=== PATIENT | female | born 1960 | race Caucasian/White ===

== ENCOUNTER 2021-03-20 20:42 | Inpatient (IN) | payer OTHER ==
[~2021-03-20] VITALS: Ht 165.1 cm; Wt 97.5 kg
--- NOTE | 2021-03-20 21:00 | NUR ---
PATIENT WAS BIBRA 102 FROM [facility] FOR AGITATION/AMS WHICH ACCORDING TO PARAMEDICS IS NOT HER USUAL BEHAVIOR PER FACILITY. PT AAO X 2-3, WAS YELLING ON PRESENTATION AND UNABLE TO PROVIDE RELEVANT HISTORY. PT'S BREATHING EVEN AND UNLABORED. SATURATION AT 96% ON ROOM AIR. PT WAS SEEN AND EXAMINED BY DR BELL. PT ATTACHED TO MONITOR AND PULSE OX. WILL CONTINUE TO MONITOR PT AND CARRY OUT MD ORDER.
--- NOTE | 2021-03-20 21:53 | NUR ---
PER SENIOR MARKETING ASSOCIATE, THEY CANNOT TAKE PATIENT PATIENT KEEPS SCREAMING AND IS BEING COMBATIVE AND WILL NOT HOLD STILL FOR THE PROCEDURE. DR COVARRUBIAS WAS NOTIFIED, HE ACKNOWLEDGED, NNO RECEIVED.
[2021-03-20 22:10] LABS: CALCIUM, SERUM 8.7 mg/dL (8.5-10.1); CREATININE 2.7 mg/dL (0.6-1.3); POTASSIUM 3.5 mmol/L (3.5-5.1)
[2021-03-20 22:16] LABS: ALBUMIN 2.8 g/dL (3.4-5.0); BILIRUBIN,DIRECT 0.1 mg/dL (0.0-0.2); BILIRUBIN,TOTAL 0.3 mg/dL (0.2-1.0); TOTAL PROTEIN, SERUM 6.4 g/dL (6.4-8.2)
[2021-03-20 22:21] LABS: BASOPHILS % (AUTO) 0.3 % (0.0-2.0); EOSINOPHILS % (AUTO) 1.3 % (0.0-6.0); HEMATOCRIT 26 % (33-45); HEMOGLOBIN 8.5 g/dL (11.5-14.8); LYMPHOCYTES # (AUTO) 1.1 K/uL (0.8-4.8); LYMPHOCYTES % (AUTO) 14.6 % (20.0-44.0); MEAN CORPUSCULAR HGB CONC 33 g/dl (31.0-36.0); MEAN CORPUSCULAR VOLUME 100 fL (82-100); MONOCYTES # (AUTO) 0.6 K/uL (0.1-1.30); MONOCYTES % (AUTO) 8.1 % (2.0-12.0); NEUTROPHILS # (AUTO) 5.8 K/uL (1.8-8.9); NEUTROPHILS % (AUTO) 75.7 % (43.0-81.0); PLATELET COUNT (AUTO) 287 K/uL (150-450); RED BLOOD CELL COUNT(AUTO) 2.55 MIL/uL (4.0-5.2); WHITE BLOOD COUNT (AUTO) 7.7 K/uL (4.3-11.0)
[2021-03-20] MEDS ORDERED: LORAZEPAM INJ 2 MG/ML VIAL IM STA (22:23)
--- NOTE | 2021-03-20 22:27 | NUR ---
PATIENT'S BROTHER(MAIN SCHOOL ATTENDANCE SECRETARY) ANAYA CAR [phone]
[2021-03-20] MEDS ORDERED: diphenhydrAMINE HCL 50 MG/ML VIAL IM ONE ×2 (22:30→23:30)
[2021-03-20] MEDS ORDERED: HALOPERIDOL LACTATE INJ 5 MG/ML VIAL IM ONE (22:30)
[2021-03-20 22:37] LABS: BILIRUBIN,URINE NEGATIVE (NEGATIVE); COLOR,URINE YELLOW (YELLOW); LEUKOCYTE ESTERASE ,URINE MODERATE (NEGATIVE); NITRITE, URINE NEGATIVE (NEGATIVE); PROTEIN,URINE 100 mg/dl (NEGATIVE); UGLUCOSE NEGATIVE (NEGATIVE); UROBILINOGEN,URINE 0.2 EU/dL (0.2)
[2021-03-20] MEDS ORDERED: LORAZEPAM INJ 2 MG/ML VIAL ONE (22:40)
[2021-03-20] MEDS ORDERED: diphenhydrAMINE HCL 50 MG/ML VIAL ONE ×2 (22:40→23:12)
[2021-03-20] MEDS ORDERED: HALOPERIDOL LACTATE INJ 5 MG/ML VIAL ONE (22:40)
[2021-03-21] MEDS ORDERED: IV NS 0.9% 1,000 ML IV ONE ×2 (00:30→12:00)
[2021-03-21] MEDS ORDERED: CEFTRIAXONE 1GM BAG (ER ONLY) 1 GM/50 ML PIGGYBACK IV ONE (00:30)
--- NOTE | 2021-03-21 00:41 | NUR ---
DR. BELL TALKING WITH DR. FELIPE DENT.
[2021-03-21] MEDS ORDERED: CEFTRIAXONE 1GM BAG (ER ONLY) 50 ML IV ONE (01:16)
--- NOTE | 2021-03-21 02:36 | NUR ---
[facility] SWAB COLLECTED AND SENT TO LAB. PATIENT'S BELONGINGS LIST DONE.
--- NOTE | 2021-03-21 02:56 | NUR ---
FOLLOWED UP WITH JUAN MANUEL
[2021-03-21] MEDS ORDERED: HEPARIN INFUSION/D5W 0 ML IV ONE (03:33)
--- NOTE | 2021-03-21 05:20 | NUR ---
per admission. pt is authorized to stay.
--- NOTE | 2021-03-21 05:20 | NUR ---
TELEPHONE CALL FROM BROTHER ANAYA, STATED HE IS CONCERNED WITH HER SISTER SHE HAS NOT BEEN ON HER USUAL MENTAL STATUS. HE EXPRESSED HIS WISH FOR PATIENT TO BE SEEN BY A PSYCHIATRIST.
--- NOTE | 2021-03-21 05:22 | NUR ---
CAlled nursing sup for bed
--- NOTE | 2021-03-21 05:22 | NUR ---
Massimo cardona in [facility] - 03/21/21 at 0524 by LAUREN Nursing Sup notified emelia kolb
--- NOTE | 2021-03-21 05:51 | NUR ---
covid swab sent to lab
[2021-03-21 07:04] LABS: BACTERIA,URINE None seen /HPF (None Seen); RBC,URINE 21-50 /HPF (0-2); SQUAMOUS EPITHELIAL CELL,UR Moderate /HPF (None Seen); WBC,URINE TOO NUMEROUS TO COUN /HPF (0-3); YEAST,URINE Many /HPF (None Seen)
[2021-03-21 07:37] LABS: ACETAMINOPHEN 0 ug/ml (10-30); ALCOHOL, BLOOD < 3 mg/dL (0-0)
[2021-03-21 07:54] LABS: CREATINE KINASE, TOTAL 39 U/L (26-192)
[2021-03-21] MEDS ORDERED: PANT40TA2 PO (07:54)
[2021-03-21] MEDS ORDERED: MAGN400O6 PO (07:54)
[2021-03-21] MEDS ORDERED: MULT-447 PO (07:54)
[2021-03-21] MEDS ORDERED: LEVO150T8 PO (07:54)
[2021-03-21] MEDS ORDERED: ASCO-352 PO (07:54)
[2021-03-21] MEDS ORDERED: NIFE-34 PO (07:54)
[2021-03-21] MEDS ORDERED: SITA50TA PO (07:54)
[2021-03-21] MEDS ORDERED: SENN-261 PO (07:54)
[2021-03-21] MEDS ORDERED: ESCI10TA PO (07:54)
[2021-03-21] MEDS ORDERED: ACET-868 PO (07:54)
[2021-03-21] MEDS ORDERED: QUET25TA PO (07:54)
[2021-03-21] MEDS ORDERED: DOCU-141 PO (07:54)
[2021-03-21] MEDS ORDERED: BISA10SU11 RC (07:54)
[2021-03-21] MEDS ORDERED: NA P133E RC (07:54)
[2021-03-21] MEDS ORDERED: CRAN425C6 PO (07:54)
[2021-03-21] MEDS ORDERED: CHOL100062 PO (07:54)
[2021-03-21] MEDS ORDERED: ACET-2605 PO (07:54)
[2021-03-21] MEDS ORDERED: SODI1TAB66 PO (07:54)
--- NOTE | 2021-03-21 09:20 | NUR ---
FRANCISCO IS BROTHER [phone]
--- NOTE | 2021-03-21 09:58 | NUR ---
REPORT GIVEN TO JEFF HEATH FOR MONE
--- NOTE | 2021-03-21 11:00 | NUR ---
RN NOTE PT RECEIVED VIA GURNEY FROM ER PT IS SLEEPING A/O X1/2 NO MEDICAL HISTORY, NO SIGN OR SYMPTOMS OF DISTRESS OR SOB AT THIS TIME, PT IS IN ROOM AIR TOLERATING WELL GRIER CATH IN PLACE BELLOW THE PT, IV ON THE R-HAND PATENT AND FLUSHING WELL, SAFETY MEASURES IN PLACE BED LOCKED AND IN LOWEST POSITION, ALARM ON, CALL LIGHT WITH IN REACH WILL CONTINUE TO MONITOR
[2021-03-21] MEDS ORDERED: Z GUARD REMEDY 2 OZ OINT TP PRN (12:00)
[2021-03-21] MEDS ORDERED: ONDANSETRON HCL/PF 4 MG/2 ML VIAL IVP PRN (12:00)
[2021-03-21] MEDS ORDERED: ACETAMINOPHEN 325 MG TABLET PO PRN (12:00)
[2021-03-21] MEDS: ENOXAPARIN SODIUM 40 MG/0.4 ML DISP.SYRIN SQ SCH (12:54)
[2021-03-21 13:39] VITALS: BP 119/53
[2021-03-21 16:00] VITALS: BP 150/88
--- NOTE | 2021-03-21 18:00 | NUR ---
RN NOTE PT SCREAMING VERY LOUD AND VERY AGITATED DOCTOR NOTIFIES PT PULLED OUT IV
[2021-03-21] MEDS: OLANZAPINE 10 MG VIAL IM PRN (18:23)
--- NOTE | 2021-03-21 18:54 | NUR ---
RN CLOSING NOTE PT IS IN BED VERY COMBATIVE AND AGITATED OLANZAPINE IM GIVEN A/O X1/2 NO, DOCTOR AWARE NO SIGN OR SYMPTOMS OF DISTRESS OR SOB AT THIS TIME, PT IS IN ROOM AIR TOLERATING WELL GRIER CATH IN PLACE BELLOW THE PT 1500 OUTPUT, NO IV AT THIS TIME, SAFETY MEASURES IN PLACE BED LOCKED AND IN LOWEST POSITION, ALARM ON, CALL LIGHT WITH IN REACH WILL ENDORSE TO SHELTER DIRECTORCUSTOMS INVESTIGATOR
[2021-03-21 20:00] VITALS: BP 159/85
--- NOTE | 2021-03-21 20:10 | NUR ---
RN NOTE PATIENT ASLEEP AROUSES TO VERBAL/STIMULI , NO SIGN OR SYMPTOMS OF DISTRESS OR SOB AT THIS TIME, AT ROOM AIR TOLERATING WELL, NO IV IN PLACED, WILL TRY TO INSERT A LINE , ALL SAFETY MEASURES IN PLACE BED LOCKED AND IN LOWEST POSITION, S/R OF BED UPX2, ALARM ON, CALL LIGHT WITH IN REACH, WILL CONTINUE TO MONITOR CLOSELY.
[2021-03-21] MEDS: QUETIAPINE FUMARATE 25 MG TABLET PO SCH (20:58)
[2021-03-21 21:29] LABS: THYROID STIMULATING HORMONE 91.937 uIU/mL (0.358-3.74)
[2021-03-21] MEDS ORDERED: ESCITALOPRAM OXALATE (10 MG) 10 MG TABLET PO SCH (22:00)
[2021-03-21] MEDS: SENNOSIDES 8.6 MG TABLET PO SCH (22:00)
[2021-03-21] MEDS: FLUCONAZOLE IN NS 100 MG in PREMIX 1 EA IV SCH (22:01)
--- NOTE | 2021-03-21 22:20 | NUR ---
RN NOTES, JAYDEN MIDLINE INSERTION BY MIDLINE NURSEM PATIENT TOLERATED PROCEDURE WELL.
[2021-03-22] VITALS: BP 157/80
[2021-03-22] MEDS: CEFTRIAXONE 1 G in IV D5W 50 ML IV SCH (01:38)
[2021-03-22 04:00] VITALS: BP 155/79
--- NOTE | 2021-03-22 06:35 | NUR ---
RN CLOSING NOTE, PATIENT ASLEEP AROUSES EASILY, CONT AT ROOM AIR, NO SIGN OR SYMPTOMS OF DISTRESS OR SOB AT THIS TIME, NSR IN THE TELE MONITOR, JAYDEN MIDLINE IN PLACED, AND NS 0.9% AT 70ML/HR INFUSING WELL AND PATIENT TOLERATED WELL, ALL SAFETY MEASURES IN PLACE BED LOCKED AND IN LOWEST POSITION, S/R OF BED UPX2, ALARM ON, CALL LIGHT WITH IN REACH, WILL ENDORSE CONTINUITY OF CARE TO ONCOMING NURSE.
[2021-03-22] MEDS ORDERED: PANTOPRAZOLE 40 MG TABLET.DR PO SCH (07:30)
[2021-03-22] MEDS ORDERED: LEVOTHYROXINE SODIUM 75 MCG TABLET PO SCH (07:30)
--- NOTE | 2021-03-22 07:33 | NUR ---
RN OPEN NOTE, PATIENT RECEIVED ASLEEP AROUSES EASILY, PT IS IN ROOM AIR, NO SIGN OR SYMPTOMS OF DISTRESS OR SOB AT THIS TIME, NSR IN THE TELE MONITOR HR 78, JAYDEN MIDLINE IN PLACED, AND NS 0.9% RUNNING 70ML/HR INFUSING WELL AND PATIENT, BILATERAL RESTRAINED NOTED, GRIER CATHETER IN PLACE AND BELOW DE PT DRAINING CLEAR YELLOW URINE, ALL SAFETY MEASURES IN PLACE BED LOCKED AND IN LOWEST POSITION, CALL LIGHT WITH IN REACH, WILL CONTINUE TO MONITOR
[2021-03-22 08:00] VITALS: BP 144/89
[2021-03-22] MEDS: NIFEdipine XL (30MG) 30 MG TAB PO SCH (08:32)
[2021-03-22] MEDS: ASCORBIC ACID 500 MG TABLET PO SCH (08:32)
[2021-03-22] MEDS: MULTIVIT W/MINERALS 1 TAB TABLET PO SCH (08:32)
[2021-03-22] MEDS: LIOTHYRONINE SODIUM (25 MCG) 25 MCG TABLET PO SCH (08:33)
[2021-03-22] MEDS: LEVOTHYROXINE SODIUM 100 MCG TABLET PO SCH (08:33)
[2021-03-22] MEDS: LINAGLIPTIN 5 MG TABLET PO SCH (08:33)
[2021-03-22] MEDS: DOCUSATE SODIUM 100 MG CAPSULE PO SCH (08:33)
[2021-03-22] MEDS: ASPIRIN EC 81 MG TABLET.DR PO SCH (08:33)
[2021-03-22] MEDS: CHOLECALCIFEROL 1,000 UNIT TABLET (VIT D3) PO SCH (08:33)
[2021-03-22] MEDS: PANTOPRAZOLE 40 MG TABLET.DR PO SCH (08:34)
[2021-03-22] MEDS: QUETIAPINE FUMARATE 25 MG TABLET PO SCH ×3 (08:34→17:00)
[2021-03-22] MEDS: ENOXAPARIN SODIUM 40 MG/0.4 ML DISP.SYRIN SQ SCH (08:35)
--- NOTE | 2021-03-22 09:00 | NUR ---
RN NOTE PSYCHIATRIC AT BED SIDE UNABLE TO TALK TO THE PT SHE STILL SLEEPING, WILL PLACE NEW MED ORDERS WILL CONTINUE TO MONITOR
[2021-03-22] MEDS: VENLAFAXINE XR 37.5 MG CAP.SR.24H PO SCH (10:49)
[2021-03-22] MEDS: METOPROLOL TARTRATE 25 MG TABLET PO SCH ×2 (11:44→21:10)
[2021-03-22 12:00] VITALS: BP 111/56
[2021-03-22 12:36] LABS: BASOPHILS % (AUTO) 0.2 % (0.0-2.0); EOSINOPHILS % (AUTO) 1.9 % (0.0-6.0); HEMATOCRIT 24 % (33-45); HEMOGLOBIN 7.9 g/dL (11.5-14.8); LYMPHOCYTES # (AUTO) 0.7 K/uL (0.8-4.8); LYMPHOCYTES % (AUTO) 10.6 % (20.0-44.0); MEAN CORPUSCULAR HGB CONC 34 g/dl (31.0-36.0); MEAN CORPUSCULAR VOLUME 99 fL (82-100); MONOCYTES # (AUTO) 0.3 K/uL (0.1-1.30); MONOCYTES % (AUTO) 5.5 % (2.0-12.0); NEUTROPHILS # (AUTO) 5.2 K/uL (1.8-8.9); NEUTROPHILS % (AUTO) 81.8 % (43.0-81.0); PLATELET COUNT (AUTO) 291 K/uL (150-450); RED BLOOD CELL COUNT(AUTO) 2.39 MIL/uL (4.0-5.2); WHITE BLOOD COUNT (AUTO) 6.3 K/uL (4.3-11.0)
[2021-03-22 12:54] LABS: CALCIUM, SERUM 8.2 mg/dL (8.5-10.1); CREATININE 2.2 mg/dL (0.6-1.3); MAGNESIUM 1.7 mg/dL (1.8-2.4); PHOSPHORUS 3.2 mg/dL (2.5-4.9); POTASSIUM 3.3 mmol/L (3.5-5.1)
[2021-03-22 16:00] VITALS: BP 92/50
--- NOTE | 2021-03-22 17:05 | NUR ---
RN NOTE QUETIAPINE HOLD PER MD PT IS DROWSY STILL, WILL CONTINUE TO MONITOR
--- NOTE | 2021-03-22 18:35 | NUR ---
RN CLOSING NOTE, PATIENT IS AWAKE NOW, ABLE TO CONSUMED 50 % OF THE DINNER, ALERT AND ORIENTED X2 IN ROOM AIR, NO SIGN OR SYMPTOMS OF DISTRESS OR SOB AT THIS TIME, BREATHING EVEN AND UNLABORED, NSR IN THE TELE MONITOR HR 75, JAYDEN MIDLINE IN PLACED, BILATERAL RESTRAINED NOTED, GRIER CATHETER IN PLACE AND BELOW DE PT DRAINING CLEAR YELLOW URINE, ALL SAFETY MEASURES IMPLEMENTED BED LOCKED AND IN LOWEST POSITION, CALL LIGHT WITH IN REACH, WILL ENDORSE TO PRECINCT COMMANDING OFFICERBLOW MOLDING MACHINE TENDER
[2021-03-22 20:00] VITALS: BP 137/70
[2021-03-22] MEDS: FLUCONAZOLE IN NS 100 MG in PREMIX 1 EA IV SCH (20:30)
[2021-03-22] MEDS: SENNOSIDES 8.6 MG TABLET PO SCH (21:57)
[2021-03-23] VITALS: BP 122/57
[2021-03-23] MEDS: CEFTRIAXONE 1 G in IV D5W 50 ML IV SCH (02:15)
[2021-03-23 04:00] VITALS: BP 122/62
[2021-03-23 06:32] LABS: BASOPHILS % (AUTO) 0.2 % (0.0-2.0); EOSINOPHILS % (AUTO) 1.9 % (0.0-6.0); HEMATOCRIT 23 % (33-45); HEMOGLOBIN 7.4 g/dL (11.5-14.8); LYMPHOCYTES # (AUTO) 1.3 K/uL (0.8-4.8); LYMPHOCYTES % (AUTO) 20.5 % (20.0-44.0); MEAN CORPUSCULAR HGB CONC 33 g/dl (31.0-36.0); MEAN CORPUSCULAR VOLUME 100 fL (82-100); MONOCYTES # (AUTO) 0.6 K/uL (0.1-1.30); MONOCYTES % (AUTO) 8.9 % (2.0-12.0); NEUTROPHILS # (AUTO) 4.3 K/uL (1.8-8.9); NEUTROPHILS % (AUTO) 68.5 % (43.0-81.0); PLATELET COUNT (AUTO) 263 K/uL (150-450); RED BLOOD CELL COUNT(AUTO) 2.26 MIL/uL (4.0-5.2); WHITE BLOOD COUNT (AUTO) 6.3 K/uL (4.3-11.0)
--- NOTE | 2021-03-23 06:43 | NUR ---
RN CLOSING NOTE, PATIENT ASLEEP AROUSES EASILY, CONT AT ROOM AIR, NO SIGN OR SYMPTOMS OF DISTRESS OR SOB AT THIS TIME, NSR IN THE TELE MONITOR, JAYDEN MIDLINE IN PLACED, PATIENT WITH EPISODES OF SCREAMING, NO SIGNIFICANT NOT NECESSARY TO GIVE ANY MEDS, SHE FALL ASLEEP AFTER, ALL SAFETY MEASURES IN PLACE BED LOCKED AND IN LOWEST POSITION, S/R OF BED UPX2, ON BILATERAL SOFT WRIST RESTRAINS WITH FREQUENT CHECKS, SKIN WNL NO CIRCULATION COMPROMISED OR ABNORMALITY NOTED, CALL LIGHT WITH IN REACH, WILL ENDORSE CONTINUITY OF CARE TO ONCOMING NURSE.
[2021-03-23 06:59] LABS: CALCIUM, SERUM 8.1 mg/dL (8.5-10.1); CREATININE 2.5 mg/dL (0.6-1.3); PHOSPHORUS 3.3 mg/dL (2.5-4.9)
--- NOTE | 2021-03-23 07:20 | NUR ---
RN OPENING NOTES; RECEIVED PT IN SUPINE POS. PT A/OX1, PT RESPONDS WHEN CALLED BY NAME. PT HAS NO C/O SOB, OR DISTRESS. NO C/O PAIN AT THIS TIME. PT SKIN INTACT. JAYDEN MIDLINE NOTED, FLUSHED WITH NO SIGNS OF INFILTRATION. SAFETY MEASURES CHECKED AND RENDERED, BED IN LOWEST POS. LOCKED, SIDE RAILSX3 WITH CALL LIGHT WITHIN REACH. WILL CONTINUE TO MONITOR.
[2021-03-23] MEDS: PANTOPRAZOLE 40 MG TABLET.DR PO SCH (07:39)
[2021-03-23] MEDS: LEVOTHYROXINE SODIUM 100 MCG TABLET PO SCH (07:39)
[2021-03-23] MEDS: LIOTHYRONINE SODIUM (25 MCG) 25 MCG TABLET PO SCH (07:39)
[2021-03-23 08:00] VITALS: BP 100/56
[2021-03-23] MEDS: LINAGLIPTIN 5 MG TABLET PO SCH (08:12)
[2021-03-23] MEDS: ASCORBIC ACID 500 MG TABLET PO SCH (08:12)
[2021-03-23] MEDS: VENLAFAXINE XR 37.5 MG CAP.SR.24H PO SCH (08:12)
[2021-03-23] MEDS: DOCUSATE SODIUM 100 MG CAPSULE PO SCH (08:12)
[2021-03-23] MEDS: ASPIRIN EC 81 MG TABLET.DR PO SCH (08:12)
[2021-03-23] MEDS: CHOLECALCIFEROL 1,000 UNIT TABLET (VIT D3) PO SCH (08:13)
[2021-03-23] MEDS: ENOXAPARIN SODIUM 40 MG/0.4 ML DISP.SYRIN SQ SCH (08:13)
[2021-03-23] MEDS: MULTIVIT W/MINERALS 1 TAB TABLET PO SCH (08:13)
[2021-03-23] MEDS: NIFEdipine XL (30MG) 30 MG TAB PO SCH (08:14)
[2021-03-23] MEDS: METOPROLOL TARTRATE 25 MG TABLET PO SCH ×2 (08:14→21:09)
[2021-03-23] MEDS: QUETIAPINE FUMARATE 25 MG TABLET PO SCH (08:15)
--- NOTE | 2021-03-23 08:15 | NUR ---
RN NOTES; BP MEDICATION HELD DUE TO BP OF 100/56 HR 62. SEROQUEL NOT GIVEN, PT STILL DROWSY. WILL CONTINUE TO MONITOR.
[2021-03-23] MEDS ORDERED: VENLAFAXINE XR 37.5 MG CAP.SR.24H PO SCH (09:00)
[2021-03-23] MEDS: risperiDONE 0.25 MG TABLET PO SCH ×2 (10:00→16:00)
[2021-03-23] MEDS ORDERED: POTASSIUM CHLORIDE 10 MEQ TABLET.SA PO ONE (10:30)
[2021-03-23] MEDS ORDERED: POTASSIUM CHLORIDE 20 MEQ TAB.PRT.SR PO SCH ×2 (11:00)
[2021-03-23 12:00] VITALS: BP 134/73
[2021-03-23 16:00] VITALS: BP 136/77
--- NOTE | 2021-03-23 18:17 | NUR ---
RN CLOSING NOTES; PT RESTING IN BED IN SUPINE POS. PT A/OX1, ABLE TO VERBALIZE HER NAME. PT HAS EPISODES OF CONFUSION AND NEEDED TO BE RE-ORIENTED SEVERAL TIMES. SEROQUEL DISCONTINUED, MEDICATION MADE PT VERY DROWSY. ALL MEDICATIONS GIVEN AND TOLERATED WELL. NO EPISODES OF AGGITATOIN OR SCREAMING DURING SHIFT. ULTRASOUND OF KIDNEY DONE. BROTHER ANAYA CALLED AND WAS GIVEN AN UPDATE ON PT HEALTH STATUS. PT RESPONDED WELL TO CONSTANTLY BEING RE-ORIENTED. PT WAS ABLE TO TOLERATE DINNER EATING APPROXIMATELY 50%. PT KEPT CLEAN, DRY AND COMFORTABLE. ALL SAFETY MEASURES RENDERED, BED IN LOWEST POS. LOCKED, BEDRAILS X3 WITH CALL LIGHT WITHIN REACH. WILL ENDORSE TO LIQUOR BLENDER RN. NO SIGNIFICANT CHANGES IN PT HEALTH STATUS DURING SHIFT. PT IN STABLE CONDITION.
--- NOTE | 2021-03-23 19:45 | NUR ---
SWITCHBOARD WIRER NOTE PT IN BED SLEEPING, AROUSABLE. NO DISTRESS OR DISCOMFORT NOTED. NO S/S OF PAIN NOTED. DENIES PAIN. CONFUSED AT TIMES. ON TELE SR HR 70. F/C INTACT AND PATENT DRAINING YELLOWISH COLOR URINE. ALL NEEDS ATTENDED. KEPT HER DRY AND CLEAN. REPOSITION HER FOR COMFORT AND SKIN MANAGEMENT
[2021-03-23 20:00] VITALS: BP 140/74
[2021-03-23] MEDS: FLUCONAZOLE IN NS 100 MG in PREMIX 1 EA IV SCH (20:55)
[2021-03-23] MEDS: SENNOSIDES 8.6 MG TABLET PO SCH (21:09)
[2021-03-23] MEDS: OLANZAPINE 10 MG VIAL IM PRN (23:51)
--- NOTE | 2021-03-23 23:51 | NUR ---
PARTS COUNTER ASSOCIATE NOTE NOTED PT SCREAMING ALOT, 1:1 ATTENTION GIVEN. TRIED TO CALM HER DOWN. FINALLY GIVEN ZYPREXA 5 MG IVP GIVEN. PT TOLERATED WILL.
[2021-03-24] VITALS: BP 145/70
--- NOTE | 2021-03-24 00:51 | NUR ---
PARK WORKER NOTE PT CALM DOWN AND FALLING BACK TO SLEEP. CONTINUE TO MONITOR HER.
[2021-03-24] MEDS: CEFTRIAXONE 1 G in IV D5W 50 ML IV SCH (02:06)
[2021-03-24 04:00] VITALS: BP 146/78
--- NOTE | 2021-03-24 07:51 | NUR ---
RN OPENING NOTE PATIENT RECEIVED IN BED, AWAKE, CALM. PATIENT ON ROOM AIR WITH NO SIGNS OF LABORED BREATHING AT THIS TIME. BILATERAL SOFT WRIST RESTRAINS ON, SKIN WARM AND INTACT. RESTRAINS REMOVED UNDER MONITORING FOR BREAKFAST. RIGHT UA MIDLINE 18G IN PLACE, PATENT WITH RUNNING FLUID AT 100 CC/HR. NO SIGNS OF DISTRESS NOTED AT THIS TIME. BED LOCKED AND IN LOWEST POSITION, CALL LIGHT WITHIN REACH, 3 SIDE RAILS UP. ALL SAFETY MEASURES IMPLEMENTED. WILL CONTINUE TO MONITOR.
[2021-03-24 08:00] VITALS: BP 148/73
[2021-03-24] MEDS: ASPIRIN EC 81 MG TABLET.DR PO SCH (08:06)
[2021-03-24] MEDS: LEVOTHYROXINE SODIUM 100 MCG TABLET PO SCH (08:07)
[2021-03-24] MEDS: NIFEdipine XL (30MG) 30 MG TAB PO SCH (08:07)
[2021-03-24] MEDS: PANTOPRAZOLE 40 MG TABLET.DR PO SCH (08:07)
[2021-03-24] MEDS: LIOTHYRONINE SODIUM (25 MCG) 25 MCG TABLET PO SCH (08:07)
[2021-03-24] MEDS: METOPROLOL TARTRATE 25 MG TABLET PO SCH ×2 (08:07→22:04)
[2021-03-24] MEDS: MULTIVIT W/MINERALS 1 TAB TABLET PO SCH (08:07)
[2021-03-24] MEDS: CHOLECALCIFEROL 1,000 UNIT TABLET (VIT D3) PO SCH (08:07)
[2021-03-24] MEDS: LINAGLIPTIN 5 MG TABLET PO SCH (08:08)
[2021-03-24] MEDS: risperiDONE 0.25 MG TABLET PO SCH ×2 (08:08→17:08)
[2021-03-24] MEDS: VENLAFAXINE XR 37.5 MG CAP.SR.24H PO SCH (08:08)
[2021-03-24] MEDS: DOCUSATE SODIUM 100 MG CAPSULE PO SCH (08:08)
[2021-03-24] MEDS: ASCORBIC ACID 500 MG TABLET PO SCH (08:08)
[2021-03-24] MEDS: ENOXAPARIN SODIUM 40 MG/0.4 ML DISP.SYRIN SQ SCH (08:09)
[2021-03-24] MEDS: IV LR 1000 ML 1,000 ML IV PRN ×2 (08:12→14:59)
[2021-03-24] MEDS: GLUCERNA SHAKE 237 ML CAN PO SCH (10:09)
[2021-03-24 12:00] VITALS: BP 161/78
[2021-03-24] MEDS: CEFEPIME 1 GM in IV D5W 50 ML IV SCH (13:57)
--- NOTE | 2021-03-24 14:40 | NUR ---
RN NOTE PATIENT TRANSFERRED TO 3W ROOM 107. REPORT GIVEN TO MARLEN HEATH. PATIENT STABLE AT TIME OF DISCHARGE.
--- NOTE | 2021-03-24 15:00 | NUR ---
RN NOTES RECEIVED PT FROM [facility] ACCOMPANIED BY RN AQUILES TRANSPORTED VIA GURNEY. PT CURRENTLY ASLEEP, EASILY AROUSED. BEDSIDE REPORT RECEIVED. IV ACCESS ON JAYDEN ML #18 INTACT AND PATENT, LR @100ML/HR STARTED. SAFETY MEASURE IN PLACE, BED LOCKED AND IN LOWEST POSITION, SR UP X2, CALL LIGHT PLACED WITHIN EASY REACH. WILL CONTINUE TO MONITOR PT.
[2021-03-24 16:00] VITALS: BP 158/76
[2021-03-24] MEDS: FLUCONAZOLE (100 MG) 100 MG TABLET PO SCH (17:08)
--- NOTE | 2021-03-24 18:50 | NUR ---
HEM INSPECTOR CLOSING NOTES RECEIVED PT FROM [facility] ACCOMPANIED BY RN AQUILES TRANSPORTED VIA GURNEY. PT CURRENTLY ASLEEP, EASILY AROUSED. BEDSIDE REPORT RECEIVED. IV ACCESS ON JAYDEN ML #18 INTACT AND PATENT, RUNNING LR @100ML/HR. ON TELEMONITOR WITH CURRENT READING OF SR @67 WITH BBB. SAFETY MEASURE IN PLACE, BED LOCKED AND IN LOWEST POSITION, SR UP X2, CALL LIGHT PLACED WITHIN EASY REACH. WILL CONTINUE TO MONITOR PT.
[2021-03-24 20:00] VITALS: BP 133/73
[2021-03-24] MEDS: SENNOSIDES 8.6 MG TABLET PO SCH (22:04)
[2021-03-25] VITALS: BP 133/66
[2021-03-25 04:00] VITALS: BP 142/81
--- NOTE | 2021-03-25 06:38 | NUR ---
METER ENGINEER NOTES AWAKE & RESPONSIVE. NOT IN ANY DISTRESS. NO SOB NOTED. DENIES ANY PAIN OR DISCOMFORT AT THIS TIME. ON TELE SR @ 75 WITH IV-HL PATENT & INTACT. MONITORED ACCORDINGLY. CALL LIGHT WITHIN REACH. BED IN LOWEST POSITION. SR UP X 3 WITH BED ALARM ON FOR SAFETY. WILL ENDORSE TO NEXT SHIFT.
[2021-03-25 06:40] LABS: BASOPHILS % (AUTO) 0.4 % (0.0-2.0); HEMATOCRIT 22 % (33-45); HEMOGLOBIN 7.4 g/dL (11.5-14.8); LYMPHOCYTES # (AUTO) 1.2 K/uL (0.8-4.8); LYMPHOCYTES % (AUTO) 17.2 % (20.0-44.0); MEAN CORPUSCULAR HGB CONC 33 g/dl (31.0-36.0); MEAN CORPUSCULAR VOLUME 99 fL (82-100); MONOCYTES # (AUTO) 0.6 K/uL (0.1-1.30); MONOCYTES % (AUTO) 8.6 % (2.0-12.0); NEUTROPHILS # (AUTO) 5.2 K/uL (1.8-8.9); NEUTROPHILS % (AUTO) 71.8 % (43.0-81.0); PLATELET COUNT (AUTO) 269 K/uL (150-450); RED BLOOD CELL COUNT(AUTO) 2.27 MIL/uL (4.0-5.2); WHITE BLOOD COUNT (AUTO) 7.2 K/uL (4.3-11.0)
[2021-03-25 07:00] LABS: CALCIUM, SERUM 8.3 mg/dL (8.5-10.1); CREATININE 2.4 mg/dL (0.6-1.3); MAGNESIUM 1.8 mg/dL (1.8-2.4); PHOSPHORUS 3.1 mg/dL (2.5-4.9); POTASSIUM 3.7 mmol/L (3.5-5.1)
--- NOTE | 2021-03-25 07:20 | NUR ---
RN NOTES RECEIVED PT IN BED, AWAKE AND VERBALLY RESPONSIVE. A/O X1-2, ABLE TO MAKE NEEDS KNOWN, CONFUSED AT TIMES. BREATHING EVEN AND UNLABORED, TOLERATING ROOM AIR. IV ACCESS ON JAYDEN ML #18 INTACT AND PATENT. SAFETY MEASURE IN PLACE, BED LOCKED AND IN LOWEST POSITION, SR UP X2, CALL LIGHT PLACED WITHIN EASY REACH. WILL CONTINUE TO MONITOR PT.
[2021-03-25 08:00] VITALS: BP 128/71
[2021-03-25] MEDS: GLUCERNA SHAKE 237 ML CAN PO SCH (08:00)
[2021-03-25] MEDS: PANTOPRAZOLE 40 MG TABLET.DR PO SCH (08:33)
[2021-03-25] MEDS: CHOLECALCIFEROL 1,000 UNIT TABLET (VIT D3) PO SCH (08:33)
[2021-03-25] MEDS: ENOXAPARIN SODIUM 40 MG/0.4 ML DISP.SYRIN SQ SCH (08:33)
[2021-03-25] MEDS: MULTIVIT W/MINERALS 1 TAB TABLET PO SCH (08:34)
[2021-03-25] MEDS: LIOTHYRONINE SODIUM (25 MCG) 25 MCG TABLET PO SCH (08:34)
[2021-03-25] MEDS: ASCORBIC ACID 500 MG TABLET PO SCH (08:34)
[2021-03-25] MEDS: DOCUSATE SODIUM 100 MG CAPSULE PO SCH (08:34)
[2021-03-25] MEDS: VENLAFAXINE XR 37.5 MG CAP.SR.24H PO SCH (08:34)
[2021-03-25] MEDS: risperiDONE 0.25 MG TABLET PO SCH ×2 (08:34→17:07)
[2021-03-25] MEDS: LINAGLIPTIN 5 MG TABLET PO SCH (08:34)
[2021-03-25] MEDS: ASPIRIN EC 81 MG TABLET.DR PO SCH (08:36)
[2021-03-25] MEDS: METOPROLOL TARTRATE 25 MG TABLET PO SCH ×2 (08:37→21:00)
[2021-03-25] MEDS: LEVOTHYROXINE SODIUM 100 MCG TABLET PO SCH (08:37)
[2021-03-25] MEDS: NIFEdipine XL (30MG) 30 MG TAB PO SCH (08:38)
--- NOTE | 2021-03-25 12:18 | NUR ---
RN NOTES PATIENT SHOUTING IN THE ROOM ABOUT HER PURSE AND BELONGINGS NOT BEING WITH HER. CHECKED INVENTORY AND PATIENT HAS NO BELONGINGS THIS ADMISSION. EXPLAINED TO PATIENT THAT HER BELONGINGS ARE IN HER PREVIOUS FACILITY. ABLE TO BE REASONED FOR NOW. PATIENT FOR PLANNED DISCHARGE TODAY BACK TO [facility].
[2021-03-25] MEDS: CEFEPIME 1 GM in IV D5W 50 ML IV SCH (12:28)
[2021-03-25] MEDS: OLANZAPINE 10 MG VIAL IM PRN ×2 (12:36→23:31)
--- NOTE | 2021-03-25 12:46 | NUR ---
RN NOTES PATIENT CONTINUES TO SHOUT AND YELL AND TELLING STAFF THAT THEY STOLE HER $4000 BAHENA AND CLOTHES. UNABLE TO BE REDIRECTED/REORIENTED. PROVIDED CALM AND SAFE ENVIRONMENT AND EXPLAINED SITUATION TO PATIENT BUT PATIENT STILL YELLS AND CONTINUES TO BE AGITATED. PATIENT W/ PRN ORDER OF ZYPREXIA, GIVEN IM FOR AGITATION. WILL CONTINUE TO MONITOR PATIENT FOR SAFETY.
--- NOTE | 2021-03-25 13:31 | NUR ---
RN NOTES SPOKE W/ PATIENT'S BROTHER ANAYA VIGIL AND INFORMED ABOUT PATIENT'S DISCHARGE TODAY WELL NON-ACCEPTANCE OF [facility] TO TAKE PATIENT BACK. ALSO PROVIDED PROGRESS ON PATIENT. WILL INFORM BROTHER IF PLACEMENT HAS BEEN MADE.
[2021-03-25 16:00] VITALS: BP 126/75
[2021-03-25] MEDS: FLUCONAZOLE (100 MG) 100 MG TABLET PO SCH (17:07)
--- NOTE | 2021-03-25 18:47 | NUR ---
RN NOTES PATIENT CURRENTLY IN ROOM, AWAKE AND VERBALLY RESPONSIVE. A/O X1-2, CONFUSED, EASILY AGITATED, ATTEMPTED TO REORIENT AND REDIRECT PATIENT, BUT PATIENT CONTINUES TO SHOUT FROM TIME TO TIME. MIDLINE INTACT AND PATENT. BREATHING EVEN AND UNLABORED. CURRENTLY W/ D/C ORDER TO SNF, AWAITING PLACEMENT. SAFETY MEASURES MAINTAINED. WILL ENDORSE TO CLEANER FURNITURE RN FOR MONE.
--- NOTE | 2021-03-25 20:00 | NUR ---
FISH SALTER NOTES RECEIVED PT AWAKE, CONFUSED, RESTLESS AND EASILY AGITATED. PT IS A SCREAMER . PT REFUSING TELE MONITOR. EXPLAINED TO PT IMPORTANCE OF TELE MONITOR IN HER POC BUT PT STILL REFUSED. PT NON COMPLIANT WITH POC. CALL LIGHT WITHIN REACH. BED IN LOWEST POSITION. SR UP X 3 WITH BED ALARM ON FOR SAFETY. WILL CONTINUE TO MONITOR.
--- NOTE | 2021-03-25 20:00 | NUR ---
SEED SERVICE ADVISOR NOTES PT REFUSED TO HAVE VS TAKEN. EXPLAINED TO PT IMPORTANCE OF VS IN HER POC BUT PT STILL REFUSED. WILL CONTINUE TO MONITOR.
--- NOTE | 2021-03-25 21:00 | NUR ---
SOCIOCULTURAL ANTHROPOLOGY PROFESSOR NOTES PT REFUSED TO TAKE HER ROUTINE MEDICATIONS. EXPLAINED TO PT IMPORTANCE OF MEDS IN HER POC BUT PT STILL REFUSED. WILL CONTINUE TO MONITOR.
[2021-03-25] MEDS: SENNOSIDES 8.6 MG TABLET PO SCH (21:29)
--- NOTE | 2021-03-25 23:31 | NUR ---
SECURITY AUDITOR NOTES PT AGITATED, AGGRESSIVE, RESTLESS AND SCREAMING ALL THE TIME. ZYPREXA GIVEN ORDERED. WILL CONTINUE TO MONITOR.
--- NOTE | 2021-03-26 06:24 | NUR ---
SENIOR LEAD JAVA DEVELOPER NOTES PT AWAKE, RESTLESS AND SCREAMING. NOT IN ANY DISTRESS. NO SOB NOTED. DENIES ANY PAIN OR DISCOMFORT AT THIS TIME. PT STILL REFUSING TELE MONITOR, VS, AM CARE DONE, TURNING & REPOSITIONING. EXPLAINED TO PT HER POC BUT PT STILL REFUSED. WILL ENDORSE TO NEXT SHIFT.
[2021-03-26] MEDS: LIOTHYRONINE SODIUM (25 MCG) 25 MCG TABLET PO SCH ×2 (07:30→09:11)
[2021-03-26] MEDS: PANTOPRAZOLE 40 MG TABLET.DR PO SCH ×2 (07:30→09:10)
[2021-03-26] MEDS: LEVOTHYROXINE SODIUM 100 MCG TABLET PO SCH ×2 (07:30→09:10)
--- NOTE | 2021-03-26 07:30 | NUR ---
RN OPENING NOTES Patient seen comfortably lying in bed, no SOB, no apparent distress noted, breathing even and unlabored, denies any pain or discomfort at this time, no grimacing. Call light left within reach, safety precautions in place, brakes locked, side rails up X 2, will monitor closely for any changes.
[2021-03-26 08:00] VITALS: BP 118/73
[2021-03-26] MEDS: GLUCERNA SHAKE 237 ML CAN PO SCH ×2 (08:00→09:14)
[2021-03-26] MEDS: LINAGLIPTIN 5 MG TABLET PO SCH ×2 (09:00→09:10)
[2021-03-26] MEDS: ASPIRIN EC 81 MG TABLET.DR PO SCH ×2 (09:00→09:10)
[2021-03-26] MEDS: risperiDONE 0.25 MG TABLET PO SCH ×4 (09:00→17:09)
[2021-03-26] MEDS: ASCORBIC ACID 500 MG TABLET PO SCH ×2 (09:00→09:11)
[2021-03-26] MEDS: METOPROLOL TARTRATE 25 MG TABLET PO SCH ×4 (09:00→21:17)
[2021-03-26] MEDS: NIFEdipine XL (30MG) 30 MG TAB PO SCH ×2 (09:00→09:12)
[2021-03-26] MEDS: VENLAFAXINE XR 37.5 MG CAP.SR.24H PO SCH ×2 (09:00→09:11)
[2021-03-26] MEDS: CHOLECALCIFEROL 1,000 UNIT TABLET (VIT D3) PO SCH ×2 (09:00→09:10)
[2021-03-26] MEDS: MULTIVIT W/MINERALS 1 TAB TABLET PO SCH ×2 (09:00→09:11)
[2021-03-26] MEDS: ENOXAPARIN SODIUM 40 MG/0.4 ML DISP.SYRIN SQ SCH ×2 (09:00→09:17)
[2021-03-26] MEDS: DOCUSATE SODIUM 100 MG CAPSULE PO SCH ×2 (09:00→09:10)
[2021-03-26] MEDS ORDERED: DEXTROSE 50%-WATER 50 ML DISP.SYRIN IV PRN (11:00)
[2021-03-26] MEDS: BLOOD SUGAR DIAGNOSTIC 1 EACH STRIP IN SCH ×3 (12:00→21:40)
[2021-03-26] MEDS: CEFEPIME 1 GM in IV D5W 50 ML IV SCH (13:00)
[2021-03-26 13:23] LABS: BASOPHILS % (AUTO) 0.2 % (0.0-2.0); EOSINOPHILS % (AUTO) 2.1 % (0.0-6.0); HEMATOCRIT 22 % (33-45); HEMOGLOBIN 7.1 g/dL (11.5-14.8); LYMPHOCYTES % (AUTO) 13.9 % (20.0-44.0); MEAN CORPUSCULAR HGB CONC 33 g/dl (31.0-36.0); MEAN CORPUSCULAR VOLUME 99 fL (82-100); MONOCYTES # (AUTO) 0.6 K/uL (0.1-1.30); MONOCYTES % (AUTO) 8.8 % (2.0-12.0); NEUTROPHILS # (AUTO) 5.2 K/uL (1.8-8.9); PLATELET COUNT (AUTO) 247 K/uL (150-450)
[2021-03-26] MEDS ORDERED: EPOETIN ALFA-EPBX 10,000 UNIT/ML VIAL SQ ONE (14:00)
[2021-03-26] MEDS: FLUCONAZOLE (100 MG) 100 MG TABLET PO SCH ×2 (17:09→17:19)
--- NOTE | 2021-03-26 18:24 | NUR ---
RN CLOSING NOTES Patient lying in bed, alert, oriented X 1-2 with episodes of forgetfulness, restlessness, and confusion, reorientation and redirection provided. Respirations even and unlabored, no SOB, no dizziness, no palpitations, no apparent distress noted. Patient preferred not to take her oral medications, explained risks and benefits thrice, still refused, respected patients wishes, hospitalist made aware and acknowledged situation. She also previously had a midline on her right upper arm which was pulled out since previous shift, attempted to start a peripheral IV line, patient refused thrice, explained risks, benefits, and hospital protocol still strongly refused, hospitalist aware. She also preferred not to have her blood sugar checked, explained risks and benefits thrice, still strongly refused, no s/s of hypo/hyperglycemia at this time, no change in level of consciousness no tremors. All needs anticipated, kept clean and dry, call light left within reach, safety precautions in place, brakes locked, side rails up X 2, will endorse to next shift for continuity of care.
--- NOTE | 2021-03-26 19:30 | NUR ---
MS RN NOTES RECEIVED ON BED A/O X2,BREATHING NON LABORED,NO SALINE LOCK REPORTED,PATIENT REFUSED TO HAVE NEW SALINE LOCK, AWARE.CALL LIGHT IN REACH,NEEDS ANTICIPATED.
[2021-03-26 20:00] VITALS: BP 122/63
--- NOTE | 2021-03-26 21:00 | NUR ---
MS RN NOTES OFFERED PO DUE MEDS BUT REFUSED
[2021-03-26] MEDS: SENNOSIDES 8.6 MG TABLET PO SCH ×2 (21:17→21:23)
--- NOTE | 2021-03-26 22:00 | NUR ---
MS RN NOTES ACCU-CHECK OFFERED BLOOD SUGAR CHECK BUT REFUSED
--- NOTE | 2021-03-27 06:21 | NUR ---
MS RN NOTES CALM AND QUIET THRU OUT SHIFT,STILL REFUSING CARE AND MEDS,NO IV ACCESS.WILL ENDORSE TO DAY NURSE FOR MONE.
[2021-03-27] MEDS: BLOOD SUGAR DIAGNOSTIC 1 EACH STRIP IN SCH ×4 (07:30→21:37)
--- NOTE | 2021-03-27 07:49 | NUR ---
MS RN OPENING NOTES RECEIVED PT IN BED ASLEEP, EASY TO AROUSE. ALERT AND ORIENTED X 1-2, ABLE TO MAKE NEEDS KNOWN, CONFUSED AT TIMES. BREATHING EVEN AND UNLABORED, TOLERATING ROOM AIR. IV ACCESS ON JAYDEN ML #18 INTACT AND PATENT. SAFETY MEASURE IN PLACE WITH BED LOCKED AND IN LOWEST POSITION, SR UP X2, CALL LIGHT PLACED WITHIN EASY REACH. WILL CONTINUE TO MONITOR PT FOR CHANGES IN CONDITION.
[2021-03-27] MEDS: CHOLECALCIFEROL 1,000 UNIT TABLET (VIT D3) PO SCH (08:25)
[2021-03-27] MEDS: ASPIRIN EC 81 MG TABLET.DR PO SCH (08:25)
[2021-03-27] MEDS: LINAGLIPTIN 5 MG TABLET PO SCH (08:25)
[2021-03-27] MEDS: LIOTHYRONINE SODIUM (25 MCG) 25 MCG TABLET PO SCH (08:25)
[2021-03-27] MEDS: VENLAFAXINE XR 37.5 MG CAP.SR.24H PO SCH (08:25)
[2021-03-27] MEDS: MULTIVIT W/MINERALS 1 TAB TABLET PO SCH (08:25)
[2021-03-27] MEDS: LEVOTHYROXINE SODIUM 100 MCG TABLET PO SCH (08:25)
[2021-03-27] MEDS: ASCORBIC ACID 500 MG TABLET PO SCH (08:25)
[2021-03-27] MEDS: NIFEdipine XL (30MG) 30 MG TAB PO SCH (08:25)
[2021-03-27] MEDS: PANTOPRAZOLE 40 MG TABLET.DR PO SCH (08:25)
[2021-03-27] MEDS: DOCUSATE SODIUM 100 MG CAPSULE PO SCH (08:26)
[2021-03-27] MEDS: risperiDONE 0.25 MG TABLET PO SCH ×2 (08:26→16:42)
[2021-03-27] MEDS: METOPROLOL TARTRATE 25 MG TABLET PO SCH ×2 (08:26→21:11)
[2021-03-27] MEDS: GLUCERNA SHAKE 237 ML CAN PO SCH (08:32)
[2021-03-27] MEDS: ENOXAPARIN SODIUM 40 MG/0.4 ML DISP.SYRIN SQ SCH (08:32)
[2021-03-27 08:59] VITALS: BP 152/68
[2021-03-27] MEDS: INSULIN REGULAR, HUMAN 100 UNIT/ML 3 ML VIAL SQ PRN ×3 (11:57→21:38)
[2021-03-27] MEDS: OLANZAPINE 10 MG VIAL IM PRN (12:10)
--- NOTE | 2021-03-27 12:15 | NUR ---
MS RN NOTE PT YELLING AND SCREAMING. CHECKED PATIENT FREQUENTLY AND PT CONTINUED TO SCREAM AND YELL. ADMINISTERED ZYPREXA 5MG IM PRN. WILL CONTINUE TO CHECK PT FREQUENTLY.
[2021-03-27] MEDS: CEFEPIME 1 GM in IV D5W 50 ML IV SCH (12:17)
[2021-03-27 13:09] LABS: BASOPHILS % (AUTO) 0.2 % (0.0-2.0); EOSINOPHILS % (AUTO) 2.1 % (0.0-6.0); HEMATOCRIT 22 % (33-45); HEMOGLOBIN 7.1 g/dL (11.5-14.8); LYMPHOCYTES # (AUTO) 0.9 K/uL (0.8-4.8); LYMPHOCYTES % (AUTO) 11.8 % (20.0-44.0); MEAN CORPUSCULAR HGB CONC 33 g/dl (31.0-36.0); MEAN CORPUSCULAR VOLUME 100 fL (82-100); MONOCYTES # (AUTO) 0.6 K/uL (0.1-1.30); MONOCYTES % (AUTO) 7.3 % (2.0-12.0); NEUTROPHILS # (AUTO) 6.2 K/uL (1.8-8.9); NEUTROPHILS % (AUTO) 78.6 % (43.0-81.0); PLATELET COUNT (AUTO) 280 K/uL (150-450); RED BLOOD CELL COUNT(AUTO) 2.16 MIL/uL (4.0-5.2); WHITE BLOOD COUNT (AUTO) 7.9 K/uL (4.3-11.0)
[2021-03-27 14:14] LABS: ALBUMIN 2.3 g/dL (3.4-5.0); BILIRUBIN,TOTAL 0.2 mg/dL (0.2-1.0); CALCIUM, SERUM 7.6 mg/dL (8.5-10.1); CREATININE 2.2 mg/dL (0.6-1.3); MAGNESIUM 1.9 mg/dL (1.8-2.4); PHOSPHORUS 3.8 mg/dL (2.5-4.9); POTASSIUM 3.5 mmol/L (3.5-5.1); TOTAL PROTEIN, SERUM 6.1 g/dL (6.4-8.2)
[2021-03-27 15:50] VITALS: BP 113/64
[2021-03-27] MEDS: FLUCONAZOLE (100 MG) 100 MG TABLET PO SCH (17:11)
--- NOTE | 2021-03-27 18:42 | NUR ---
MS RN CLOSING NOTES PT IN BED ASLEEP, EASY TO AROUSE. ALERT AND ORIENTED X 1-2, ABLE TO MAKE NEEDS KNOWN, CONFUSED AT TIMES. BREATHING EVEN AND UNLABORED, TOLERATING ROOM AIR. NO C/O PAIN. NO IV ACCESS AT THIS TIME. PT REFUSED REINSERTION. SAFETY MEASURES MAINTAINED WITH BED LOCKED AND IN LOWEST POSITION, SR UP X2, CALL LIGHT PLACED WITHIN EASY REACH. NO SIGNIFICANT CHANGE IN CONDITION DURING SHIFT. WILL ENDORSE CONTINUITY OF CARE TO ONCOMING SHIFT.
--- NOTE | 2021-03-27 19:10 | NUR ---
RN NOTES: RECEIVED ASLEEP ON BED, PER ENDORSEMENT HAS BEEN SLEEPING FROM AFTERNOON TIME, NEED IV ACCESS,SHES BEEN REFUSING AND DOCTOR IS AWARE, WILL TRY LATER, FOR ACCUCHECK AND AM LABS, STOOL OB STILL PENDING,NO BM IN THE MORNING, ON GRIER CATH DRAINING INTO YELLOWISH COLORED URINE AT 50CC LEVEL.-FALL, SAFETY AND ASPIRATION PRECAUTION OBSERVED-ON CLOSE VISUAL CHECK.
[2021-03-27 20:00] VITALS: BP 112/75
[2021-03-27] MEDS: SENNOSIDES 8.6 MG TABLET PO SCH (21:11)
--- NOTE | 2021-03-27 21:38 | NUR ---
RN NOTES: BLOOD SUGAR CHECKED-120, NO INSULIN GIVEN PER SCALE WILL CONTINUE TO MONITOR FOR HYPER/HYPOGLYCEMIA.
[2021-03-27 22:49] LABS: THYROID STIMULATING HORMONE 19.872 uIU/mL (0.358-3.74)
--- NOTE | 2021-03-28 01:39 | NUR ---
RN NOTES: -AROUND 2034 SHE WAS AWAKE AND SHE EAT A LITTLE FROM HER DINNER PLATE, THEN DRINK SOME JUICE. -SHE KEEP ON LOOKING FOR HER PURSE BUT PER CLINICAL INFORMATICS STRATEGIST SHE DONT HAVE BELONGINGS WHEN SHE CAME IN. -RN EXPLAINED TO HER IF WE CAN INSERT IV CANNULA SHE SAID "PLEASE DONT, I DONT WANT ANY NEEDLE RIGHT NOW". -CALLS AND NEEDS ATTENDED. -ABLE TO SLEEP AT SHORT INTERVALS.
[2021-03-28] MEDS: BLOOD SUGAR DIAGNOSTIC 1 EACH STRIP IN SCH ×4 (07:30→22:00)
--- NOTE | 2021-03-28 07:30 | NUR ---
RN NOTES: -NEEDS ATTENDED, UNABLE TO CHECK BS BECAUSE SHE IS IN DEEP SLEEP, GRIER CATH DRAINING WELL,KEPT ON CLOSE WATCH, NO LABS IN THE MORNING,ENDORSED FOR CONTINUITY OF CARE.
--- NOTE | 2021-03-28 07:33 | NUR ---
MS RN OPENING NOTES RECEIVED PT IN BED ASLEEP, EASY TO AROUSE. ALERT AND ORIENTED X 1-2. ABLE TO MAKE NEEDS KNOWN, CONFUSED AT TIMES. BREATHING EVEN AND UNLABORED, TOLERATING ROOM AIR. NO SOB. NO SIGNS OF ACUTE DISTRESS. SAFETY MEASURE IN PLACE WITH BED LOCKED AND IN LOWEST POSITION, SR UP X2, CALL LIGHT PLACED WITHIN EASY REACH. WILL CONTINUE TO MONITOR PT FOR CHANGES IN CONDITION.
[2021-03-28] MEDS: DOCUSATE SODIUM 100 MG CAPSULE PO SCH (08:11)
[2021-03-28] MEDS: VENLAFAXINE XR 37.5 MG CAP.SR.24H PO SCH (08:11)
[2021-03-28] MEDS: ASPIRIN EC 81 MG TABLET.DR PO SCH (08:11)
[2021-03-28] MEDS: CHOLECALCIFEROL 1,000 UNIT TABLET (VIT D3) PO SCH (08:11)
[2021-03-28] MEDS: LEVOTHYROXINE SODIUM 100 MCG TABLET PO SCH (08:11)
[2021-03-28] MEDS: PANTOPRAZOLE 40 MG TABLET.DR PO SCH (08:11)
[2021-03-28] MEDS: MULTIVIT W/MINERALS 1 TAB TABLET PO SCH (08:11)
[2021-03-28] MEDS: LINAGLIPTIN 5 MG TABLET PO SCH (08:11)
[2021-03-28] MEDS: ASCORBIC ACID 500 MG TABLET PO SCH (08:11)
[2021-03-28] MEDS: LIOTHYRONINE SODIUM (25 MCG) 25 MCG TABLET PO SCH (08:11)
[2021-03-28] MEDS: risperiDONE 0.25 MG TABLET PO SCH ×2 (08:11→16:50)
[2021-03-28] MEDS: GLUCERNA SHAKE 237 ML CAN PO SCH (08:14)
[2021-03-28] MEDS: NIFEdipine XL (30MG) 30 MG TAB PO SCH (09:17)
[2021-03-28] MEDS: METOPROLOL TARTRATE 25 MG TABLET PO SCH ×2 (09:17→21:00)
--- NOTE | 2021-03-28 10:36 | NUR ---
MS RN NOTE PT IS AGGRESSIVE AND COMBATIVE; YELLING AND SCREAMING AT ME AND JESSY ORTIZ DURING LINEN CHANGE. ADMINISTERED ZYPREXA 5MG IM INJECTION PRN BID. WILL OBSERVE PT FOR CHANGE IN CONDITION.
--- NOTE | 2021-03-28 11:10 | NUR ---
MS RN NOTE PT YELLING AND SCREAMING DURING LINEN CHANGE. PT COMBATIVE AND PHYSICALLY AGGRESSIVE; INFORMED DR. PA WITH ORDERS TO RENEW SOFT WRIST BILATERAL RESTRAINTS. ORDERS READ BACK AND CARRIED OUT.
[2021-03-28] MEDS: CEFEPIME 1 GM in IV D5W 50 ML IV SCH (12:15)
[2021-03-28] MEDS: FLUCONAZOLE (100 MG) 100 MG TABLET PO SCH (17:34)
--- NOTE | 2021-03-28 18:55 | NUR ---
MS RN CLOSING NOTES PT IN BED, AWAKE AND AGITATED. ABLE TO MAKE NEEDS KNOWN, CONFUSED AT TIMES. BREATHING EVEN AND UNLABORED, TOLERATING ROOM AIR. NO C/O PAIN. NO IV ACCESS AT THIS TIME. PT REFUSED REINSERTION. SAFETY MEASURES MAINTAINED WITH BED LOCKED AND IN LOWEST POSITION, SR UP X2, CALL LIGHT PLACED WITHIN EASY REACH. NO SIGNIFICANT CHANGE IN CONDITION DURING SHIFT. WILL ENDORSE CONTINUITY OF CARE TO ONCOMING SHIFT.
--- NOTE | 2021-03-28 19:30 | NUR ---
RN opening notes Received Pt from morning nurse. Pt is sitting in bed awake screaming, yelling and not following commands. Pt is alert and orientedX1 with episode of confusion. Respiration is normal in room air. no SOB. No S/s of distress noted. No IV sites noted. meraz cath is intact and draining yellow urine. Safety precautions is maintained. Bed at low position, brakes locked, hob elevated, bed alarm is on and call light is within reach. Will continue to monitor.
[2021-03-28 20:00] VITALS: BP_SYST 106; BP_SYST 124; BP_DIAS 53; BP_DIAS 75
--- NOTE | 2021-03-28 20:10 | NUR ---
RN notes Pt refused VS at 1999. Explained risks and benefits. Pt keep refusing and screaming " NO!!" Will continue to monitor.
[2021-03-28] MEDS: OLANZAPINE 10 MG VIAL IM PRN (20:36)
--- NOTE | 2021-03-28 20:36 | NUR ---
RN notes Pt is screaming, yelling and trying to get out the bed, very combative and squezing staffs hand and non compliant. Explained risks and benefits. Administered zyprexa IM 5 mg/prn as ordered. Safety precautions is maintained. Will continue to monitor.
[2021-03-28] MEDS: SENNOSIDES 8.6 MG TABLET PO SCH (22:00)
--- NOTE | 2021-03-28 22:18 | NUR ---
RN notes Pt still refusing VS and pm meds and blood sugar checks. Pt screaming and yelling calling the staffs "There's a stupid bitch on the floor!! You are a bitch!!" Reality orientation provided. Pt keep screaming " get that stupid bitch out of here!!" Will continue to monitor.
--- NOTE | 2021-03-28 23:30 | NUR ---
RN notes Pt is resting in bed comfortably. Will continue to monitor.
[2021-03-29 01:00] VITALS: BP 143/95
--- NOTE | 2021-03-29 06:40 | NUR ---
RN closing notes Pt is resting in bed comfortably. Pt is alert and orientedX1 with episode of confusion. Respiration is normal in room air. no SOB. No S/s of distress noted. No IV sites noted. meraz cath is intact and draining yellow urine 500ml. Kept Pt clean, dry and comfortable. Safety precautions is maintained. Bed at low position, brakes locked, hob elevated, bed alarm is on and call light is within reach. Will endorse to am nurse for MONE.
[2021-03-29] MEDS: BLOOD SUGAR DIAGNOSTIC 1 EACH STRIP IN SCH ×4 (07:30→22:14)
[2021-03-29] MEDS: PANTOPRAZOLE 40 MG TABLET.DR PO SCH (07:30)
--- NOTE | 2021-03-29 07:30 | NUR ---
MS RN OPENING NOTES RECEIVED PT IN BED ASLEEP, EASY TO AROUSE. ALERT AND ORIENTED X 1-2. ABLE TO MAKE NEEDS KNOWN, CONFUSED AT TIMES. BREATHING EVEN AND UNLABORED, TOLERATING ROOM AIR. NO SOB. NO SIGNS OF ACUTE DISTRESS. ACUTE BILATERAL RESTRAINTS ON AT THIS TIME;SKIN CHECK DONE. WILL MONITOR FREQENTLY.SAFETY MEASURES IN PLACE WITH BED LOCKED AND IN LOWEST POSITION, SR UP X2, CALL LIGHT PLACED WITHIN EASY REACH. WILL CONTINUE TO MONITOR PT FOR CHANGES IN CONDITION.
[2021-03-29] MEDS: GLUCERNA SHAKE 237 ML CAN PO SCH (08:00)
[2021-03-29] MEDS: LEVOTHYROXINE SODIUM 100 MCG TABLET PO SCH (08:48)
[2021-03-29] MEDS: LIOTHYRONINE SODIUM (25 MCG) 25 MCG TABLET PO SCH (08:48)
[2021-03-29] MEDS: ASPIRIN EC 81 MG TABLET.DR PO SCH (08:49)
[2021-03-29] MEDS: METOPROLOL TARTRATE 25 MG TABLET PO SCH ×2 (08:49→21:33)
[2021-03-29] MEDS: DOCUSATE SODIUM 100 MG CAPSULE PO SCH (08:49)
[2021-03-29] MEDS: NIFEdipine XL (30MG) 30 MG TAB PO SCH ×2 (08:50→11:19)
[2021-03-29] MEDS: LINAGLIPTIN 5 MG TABLET PO SCH (08:50)
[2021-03-29] MEDS: risperiDONE 0.25 MG TABLET PO SCH ×3 (08:50→17:01)
[2021-03-29] MEDS: ASCORBIC ACID 500 MG TABLET PO SCH (08:50)
[2021-03-29] MEDS: MULTIVIT W/MINERALS 1 TAB TABLET PO SCH (08:50)
[2021-03-29] MEDS: CHOLECALCIFEROL 1,000 UNIT TABLET (VIT D3) PO SCH (08:51)
[2021-03-29] MEDS: VENLAFAXINE XR 37.5 MG CAP.SR.24H PO SCH (08:52)
--- NOTE | 2021-03-29 10:54 | NUR ---
MS RN NOTE ACUTE BILATERAL RESTRAINTS REMOVED AT THIS TIME; WILL MONITOR PT BEHAVIOR CLOSELY. CHARGE NURSE AND DR. DOBBS MADE AWARE.
--- NOTE | 2021-03-29 11:41 | NUR ---
MS RN NOTE ACUTE MEDICAL RESTRAINT ORDER ACCIDENTALLY "CANCELLED" INSTEAD OF "DISCONTINUED."
[2021-03-29] MEDS: INSULIN REGULAR, HUMAN 100 UNIT/ML 3 ML VIAL SQ PRN ×2 (11:49→22:25)
[2021-03-29] MEDS: CEFEPIME 1 GM in IV D5W 50 ML IV SCH (12:14)
--- NOTE | 2021-03-29 12:31 | NUR ---
MS RN NOTE PT IS CURRENTLY EATING LUNCH. PT IS CALM; NO SIGNS OF AGGRESSIVE BEHAVIOR OR COMBATIVENESS. PT AGREED TO TAKING AFTERNOON MEDS AND BS CHECK.
[2021-03-29 12:50] LABS: OCCULT BLOOD STOOL NEGATIVE (NEGATIVE)
--- NOTE | 2021-03-29 12:50 | NUR ---
MS RN NOTE PT AGREED TO HAVE GRIER CATHETER REMOVED PER DR. GALEANO ORDER. PT TOLERATED FC REMOVAL WELL.
--- NOTE | 2021-03-29 13:40 | NUR ---
MS RN NOTE PTS BROTHER AT BEDSIDE REQUESTING UPDATE PHONE CALL FROM HOSPITALIST AND PSYCHIATRIST. MADE DR. DOBBS AND DR. BOLDEN AWARE WITH HIS CONTACT INFORMATION AND NUMBER.
--- NOTE | 2021-03-29 13:45 | NUR ---
MS RN NOTE PTS BROTHER ANAYA WAS AT BEDSIDE AND LEFT. AFTER BROTHER LEFT, PT BECAME AGITATED AND STARTED YELLING AT STAFF AND SHOUTING TO "GET OUT AND LEAVE!"
[2021-03-29] MEDS: OLANZAPINE 10 MG VIAL IM PRN (13:50)
--- NOTE | 2021-03-29 13:52 | NUR ---
MS RN NOTE ADMINISTERED ZYPREXA 5MG IM FOR AGITATION AND AGGRESSION. WILL MONITOR PT CLOSELY. PT STILL WITHOUT RESTRAINTS.
[2021-03-29] MEDS: FLUCONAZOLE (100 MG) 100 MG TABLET PO SCH (17:04)
--- NOTE | 2021-03-29 18:51 | NUR ---
MS RN CLOSING NOTES PT IN BED, AWAKE AND AGITATED;YELLING AND SCREAMING DESPITE FREQUENT ROUNDS. CONFUSED AND FORGETFUL. BREATHING EVEN AND UNLABORED, TOLERATING ROOM AIR. NO C/O PAIN. NO IV ACCESS AT THIS TIME. PT REFUSED REINSERTION. SAFETY MEASURES MAINTAINED WITH BED LOCKED AND IN LOWEST POSITION, SR UP X2, CALL LIGHT PLACED WITHIN EASY REACH. NO SIGNIFICANT CHANGE IN CONDITION DURING SHIFT. WILL ENDORSE CONTINUITY OF CARE TO ONCOMING SHIFT.
--- NOTE | 2021-03-29 19:20 | NUR ---
RN opening notes Received Pt from morning nurse. Pt is sitting in bed awake screaming, and yelling. Reality orientation provided. Pt is alert and orientedX1 with episode of confusion. Respiration is normal in room air. no SOB. No S/s of distress noted. No IV sites noted. Safety precautions is maintained. Bed at low position, brakes locked, hob elevated, bed alarm is on and call light is within reach. Will continue to monitor.
[2021-03-29 20:00] VITALS: BP 106/53
[2021-03-29] MEDS: SENNOSIDES 8.6 MG TABLET PO SCH (21:32)
--- NOTE | 2021-03-30 06:15 | NUR ---
RN notes Pt refused BS in am. Explained risks and benefits. Pt keep refusing. Will endorse to am nurse
--- NOTE | 2021-03-30 06:40 | NUR ---
RN closing notes Pt is resting in bed comfortably. Pt is alert and orientedX1 with episode of confusion. Respiration is normal in room air. no SOB. No S/s of distress noted. VS is stable. No IV sites noted. Kept Pt clean, dry and comfortable. Safety precautions is maintained. Bed at low position, brakes locked, hob elevated, bed alarm is on and call light is within reach. Will endorse to am nurse for MONE.
[2021-03-30] MEDS: BLOOD SUGAR DIAGNOSTIC 1 EACH STRIP IN SCH ×4 (06:41→22:00)
--- NOTE | 2021-03-30 07:15 | NUR ---
RN OPENING NOTE RECEIVED PATIENT IN BED. A/O X1. ON ROOM AIR, NO SOB NOTED. IN NO APPARENT DISTRESS. NO IV ACCESS, PER REPORT MD's AWARE. SAFETY MEASURES MAINTAINED. BED IN LOWEST POSITION, BRAKES LOCKED. SIDE RAILS UP X2. CALL LIGHT WITHIN REACH. WILL CONTINUE PLAN OF CARE.
[2021-03-30 08:00] VITALS: BP 131/58
[2021-03-30] MEDS: LEVOTHYROXINE SODIUM 100 MCG TABLET PO SCH (09:00)
[2021-03-30] MEDS: MULTIVIT W/MINERALS 1 TAB TABLET PO SCH (09:00)
[2021-03-30] MEDS: PANTOPRAZOLE 40 MG TABLET.DR PO SCH (09:01)
[2021-03-30] MEDS: LIOTHYRONINE SODIUM (25 MCG) 25 MCG TABLET PO SCH (09:01)
[2021-03-30] MEDS: VENLAFAXINE XR 37.5 MG CAP.SR.24H PO SCH (09:02)
[2021-03-30] MEDS: METOPROLOL TARTRATE 25 MG TABLET PO SCH ×2 (09:02→21:00)
[2021-03-30] MEDS: NIFEdipine XL (30MG) 30 MG TAB PO SCH (09:02)
[2021-03-30] MEDS: DOCUSATE SODIUM 100 MG CAPSULE PO SCH (09:03)
[2021-03-30] MEDS: ASPIRIN EC 81 MG TABLET.DR PO SCH (09:03)
[2021-03-30] MEDS: LINAGLIPTIN 5 MG TABLET PO SCH (09:03)
[2021-03-30] MEDS: CHOLECALCIFEROL 1,000 UNIT TABLET (VIT D3) PO SCH (09:03)
[2021-03-30] MEDS: ASCORBIC ACID 500 MG TABLET PO SCH (09:03)
[2021-03-30] MEDS: GLUCERNA SHAKE 237 ML CAN PO SCH (09:04)
[2021-03-30] MEDS: risperiDONE 1 MG TABLET PO SCH ×4 (09:13→17:03)
[2021-03-30] MEDS: INSULIN REGULAR, HUMAN 100 UNIT/ML 3 ML VIAL SQ PRN (12:21)
[2021-03-30 16:00] VITALS: BP 114/83
--- NOTE | 2021-03-30 17:09 | NUR ---
RN NOTE PT REFUSED HER BLOOD SUGAR TO BE CHECKED. EXPLAINED RISKS AND BENEFITS, PT STILL REFUSED.
--- NOTE | 2021-03-30 18:11 | NUR ---
RN OPENING NOTE PATIENT RESTING IN BED. A/O X1. CONFUSED. ON ROOM AIR, DENIES SOB. NO S/S OF RESPIRATORY DISTRESS. DUE MEDS GIVEN ORDERED. SAFETY MEASURES MAINTAINED. BED IN LOWEST POSITION, BRAKES LOCKED. SIDE RAILS UP X2. KEPT CALL LIGHT WITHIN REACH. WILL ENDORSE CONTINUIT OF CARE TO INCOMING SHIFT. Addendum: 03/30/21 at 1813 by ANU OGDEN RN *RN CLOSING NOTE
--- NOTE | 2021-03-30 19:35 | NUR ---
MS RN OPENING NOTE PATIENT RECEIVED AWAKE IN BED SCREAMING AND YELLING. PATIENT WAS REPORTED TO HAVE BEEN MORE RELAXED EARLIER IN THE SHAFT, SO I WILL MONITOR AND ASSESS HER TO MEET HER NEEDS. PATIENT A/OX4. NO S/S OF DISTRESS, BREATHING SYMMETRICAL. SAFETY MEASURES FOLLOWED: BED AT LOWEST POSITION, RAILS UP X2, CALL WEIR WITHIN REACH. WILL CONTINUE TO MONITOR PATIENT.
[2021-03-30] MEDS: SENNOSIDES 8.6 MG TABLET PO SCH (22:00)
[2021-03-31 01:22] VITALS: BP 135/58
--- NOTE | 2021-03-31 02:26 | NUR ---
MS RN NOTE PATIENT CONTINUES TO BE NON-COMPLIANT AND VERY UNCOOPERATIVE WITH HER TREATMENT HERE AT [facility]. SHE HAS REFUSED ALL SCHEDULED MEDS. HER RECENT VS ARE WNL SAVE FOR A TEMP OF 100.7. I WENT TO REASSESS THE PATIENT TO VERIFY TEMP AND INITIATE ANY NECESSARY MEASURES, BUT PATIENT WAS ADAMANT THAT SHE WAS REFUSING ANY AND ALL MEDS AND ANY AND ALL TREATMENT. SHE DISREGARDS MY TRYING TO EDUCATE HER AND [facility], BUT IT IS HER RIGHT TO DO SO. WILL CONTINUE TO MONITOR PATIENT AND EDUCATE AND [facility] AT ANY VIABLE OPPORTUNITY.
--- NOTE | 2021-03-31 06:34 | NUR ---
MS RN CLOSING NOTE PATIENT IS AWAKE IN BED. A/OX3-4. NO S/S OF DISTRESS, BREATHING SYMMETRICAL. SAFETY MEASURES IN PLACE: BED AT LOWEST POSITION, RAILS UP X2, CALL WEIR WITHIN REACH. WILL ENDORSE TO NEXT SHIFT FOR MONE. PATIENT HAS REFUSED HER A.M. ACCUCHECK, ALL TREATMENT, AND INTERACTION WITH STAFF. MORNING ORDERED BLOOD DRAW WAS REFUSED/DECLINED BY PATIENT. PATIENT HAS BEEN VERY AGITATED. EFFORTS TO REORIENT HER TO HER ENVIRONMENT, OR EDUCATE ON TREATMENT PLAN HAVE BEEN FUTILE.
[2021-03-31] MEDS: BLOOD SUGAR DIAGNOSTIC 1 EACH STRIP IN SCH ×4 (06:45→22:00)
[2021-03-31] MEDS: PANTOPRAZOLE 40 MG TABLET.DR PO SCH (07:30)
[2021-03-31] MEDS: LEVOTHYROXINE SODIUM 100 MCG TABLET PO SCH (07:30)
[2021-03-31] MEDS: LIOTHYRONINE SODIUM (25 MCG) 25 MCG TABLET PO SCH (07:30)
--- NOTE | 2021-03-31 07:43 | NUR ---
MS RN OPENING NOTES RECEIVED Pt AWAKE IN BED. A/OX2-3. BREATHING IS EVEN AND UNLABORED ON ROOM AIR AT THIS TIME. NO IV ACCESS AT THIS TIME. Pt IS SCREAMING AND YELLING. TRIED TO COMMUNICATE WITH HER AND THAT HELPED HER A LITTLE BIT. SAFETY MEASURES IN PLACE: BED IS LOCKED AND IN LOWEST, SIDE RAILS UP X3, BED ALARM IS ON, CALL LIGHT AND BEDSIDE TABLE ARE WITHIN REACH. WILL CONTINUE TO MONITOR THROUGHOUT THE SHIFT
[2021-03-31] MEDS: GLUCERNA SHAKE 237 ML CAN PO SCH (08:00)
--- NOTE | 2021-03-31 08:12 | NUR ---
MS RN NOTES- AM NOTES Pt REFUSED AM MEDS AND AM VITALS. WILL CONTINUE TO MONITOR.
--- NOTE | 2021-03-31 08:35 | NUR ---
MS RN NOTES Pt REFUSED CT SCAN
[2021-03-31] MEDS: CHOLECALCIFEROL 1,000 UNIT TABLET (VIT D3) PO SCH (09:00)
[2021-03-31] MEDS: DOCUSATE SODIUM 100 MG CAPSULE PO SCH (09:00)
[2021-03-31] MEDS: VENLAFAXINE XR 37.5 MG CAP.SR.24H PO SCH (09:00)
[2021-03-31] MEDS: risperiDONE 1 MG TABLET PO SCH ×4 (09:00→17:00)
[2021-03-31] MEDS: ASPIRIN EC 81 MG TABLET.DR PO SCH (09:00)
[2021-03-31] MEDS: ASCORBIC ACID 500 MG TABLET PO SCH (09:00)
[2021-03-31] MEDS: LINAGLIPTIN 5 MG TABLET PO SCH (09:00)
[2021-03-31] MEDS: NIFEdipine XL (30MG) 30 MG TAB PO SCH (09:00)
[2021-03-31] MEDS: METOPROLOL TARTRATE 25 MG TABLET PO SCH ×2 (09:00→21:00)
[2021-03-31] MEDS: MULTIVIT W/MINERALS 1 TAB TABLET PO SCH (09:00)
--- NOTE | 2021-03-31 09:33 | NUR ---
Patient refuse for Cat Scan Nurse Carrie is Aware, and will notify ordering doctor
[2021-03-31] MEDS: OLANZAPINE 10 MG VIAL IM PRN (13:25)
--- NOTE | 2021-03-31 14:52 | NUR ---
MS RN NOTES Pt REFUSED LABS AND CT
--- NOTE | 2021-03-31 18:32 | NUR ---
MS RN CLOSING NOTES Pt IS AWAKE IN BED, A/O x 2. BREATHING IS EVEN AND UNLABORED ON ROOM AIR. NO COMPLAINTS OF MADE OR SIGNS OF DISTRESS AT THIS TIME. Pt REFUSED ALL CARE TODAY. SAFETY MEASURES ARE IN PLACE, BED IS LOCKED AND IN LOWEST POSITION, SIDE RAILS UP X 3. CALL LIGHT AND BEDSIDE TABLE ARE WITHIN REACH. WILL ENDORSE TO ONCOMING SHIFT.
--- NOTE | 2021-03-31 19:50 | NUR ---
MS RN OPENING NOTES RECEIVED Pt AWAKE IN BED. A/OX2-3. BREATHING IS EVEN AND UNLABORED ON ROOM AIR AT THIS TIME. NO IV ACCESS AT THIS TIME. SAFETY MEASURES IN PLACE: BED IS LOCKED AND IN LOWEST POSITION, SIDE RAILS UP X3, BED ALARM IS ON, CALL LIGHT AND BEDSIDE TABLE ARE WITHIN REACH. WILL CONTINUE TO MONITOR THROUGHOUT THE SHIFT
[2021-03-31 20:00] VITALS: BP 154/83
[2021-03-31] MEDS: SENNOSIDES 8.6 MG TABLET PO SCH (22:00)
[2021-04-01] MEDS: BLOOD SUGAR DIAGNOSTIC 1 EACH STRIP IN SCH ×4 (05:59→22:00)
--- NOTE | 2021-04-01 06:27 | NUR ---
MS RN CLOSING NOTES Pt IS ASLEEP IN BED, A/O x 2. BREATHING IS EVEN AND UNLABORED ON ROOM AIR. NO COMPLAINTS OF PAIN MADE AT THIS TIME OR SIGNS OF DISTRESS NOTICED. Pt REFUSED MEDS TODAY. SAFETY MEASURES ARE IN PLACE, BED IS LOCKED AND IN LOWEST POSITION, SIDE RAILS UP X 3. CALL LIGHT AND BEDSIDE TABLE ARE WITHIN REACH. WILL ENDORSE TO ONCOMING SHIFT.
[2021-04-01] MEDS: INSULIN REGULAR, HUMAN 100 UNIT/ML 3 ML VIAL SQ PRN ×2 (06:49→11:47)
[2021-04-01 07:00] LABS: BASOPHILS % (AUTO) 0.2 % (0.0-2.0); EOSINOPHILS % (AUTO) 1.6 % (0.0-6.0); LYMPHOCYTES # (AUTO) 0.8 K/uL (0.8-4.8); LYMPHOCYTES % (AUTO) 11.5 % (20.0-44.0); MEAN CORPUSCULAR HGB CONC 33 g/dl (31.0-36.0); MEAN CORPUSCULAR VOLUME 100 fL (82-100); MONOCYTES # (AUTO) 0.5 K/uL (0.1-1.30); MONOCYTES % (AUTO) 7.2 % (2.0-12.0); NEUTROPHILS # (AUTO) 5.7 K/uL (1.8-8.9); NEUTROPHILS % (AUTO) 79.5 % (43.0-81.0); PLATELET COUNT (AUTO) 241 K/uL (150-450); WHITE BLOOD COUNT (AUTO) 7.2 K/uL (4.3-11.0)
[2021-04-01 07:24] LABS: THYROID STIMULATING HORMONE 32.154 uIU/mL (0.358-3.74)
--- NOTE | 2021-04-01 07:30 | NUR ---
MS RN OPENING NOTES RECEIVED PT IN BED, ASLEEP, NOT IN ANY FORM OF ACUTE DISTRESS NOTED. BREATHING IS EVEN AND UNLABORED ON ROOM AIR AT THIS TIME. NO IV ACCESS AT THIS TIME. SAFETY MEASURES IN PLACE: BED IS LOCKED AND IN LOWEST POSITION, SIDE RAILS UP X3, BED ALARM IS ON, CALL LIGHT AND BEDSIDE TABLE ARE WITHIN REACH. WILL CONTINUE TO MONITOR ACCORDINGLY.
[2021-04-01 07:55] LABS: CALCIUM, SERUM 8.3 mg/dL (8.5-10.1); CREATININE 2.4 mg/dL (0.6-1.3); MAGNESIUM 2.1 mg/dL (1.8-2.4); PHOSPHORUS 4.4 mg/dL (2.5-4.9)
[2021-04-01 08:00] VITALS: BP_SYST 143; BP_SYST 147; BP_DIAS 73
[2021-04-01] MEDS: MULTIVIT W/MINERALS 1 TAB TABLET PO SCH (08:16)
[2021-04-01] MEDS: DOCUSATE SODIUM 100 MG CAPSULE PO SCH (08:16)
[2021-04-01] MEDS: VENLAFAXINE XR 37.5 MG CAP.SR.24H PO SCH (08:16)
[2021-04-01] MEDS: LEVOTHYROXINE SODIUM 100 MCG TABLET PO SCH (08:16)
[2021-04-01] MEDS: CHOLECALCIFEROL 1,000 UNIT TABLET (VIT D3) PO SCH (08:16)
[2021-04-01] MEDS: LINAGLIPTIN 5 MG TABLET PO SCH (08:16)
[2021-04-01] MEDS: LIOTHYRONINE SODIUM (25 MCG) 25 MCG TABLET PO SCH (08:16)
[2021-04-01] MEDS: PANTOPRAZOLE 40 MG TABLET.DR PO SCH (08:17)
[2021-04-01] MEDS: risperiDONE 1 MG TABLET PO SCH ×3 (08:17→16:25)
[2021-04-01] MEDS: NIFEdipine XL (30MG) 30 MG TAB PO SCH (08:17)
[2021-04-01] MEDS: ASPIRIN EC 81 MG TABLET.DR PO SCH (08:17)
[2021-04-01] MEDS: ASCORBIC ACID 500 MG TABLET PO SCH (08:17)
[2021-04-01] MEDS: METOPROLOL TARTRATE 25 MG TABLET PO SCH ×2 (08:18→20:46)
[2021-04-01] MEDS: GLUCERNA SHAKE 237 ML CAN PO SCH ×2 (08:25→16:25)
--- NOTE | 2021-04-01 08:40 | NUR ---
RN NOTES PATIENT AGREED TO DO THE CT OF THE HEAD WITHOUT CONTRAST. PATIENT WAS PICKED UP BY [facility] FROM [facility]. LEFT UNIT IN STABLE CONDITION.
[2021-04-01 10:31] LABS: HEMATOCRIT 20 % (33-45); RED BLOOD CELL COUNT(AUTO) 1.99 MIL/uL (4.0-5.2)
--- NOTE | 2021-04-01 10:31 | NUR ---
RN NOTES CRITICAL LAB RESULT REPORTED BY RUTH ANN FROM LAB, RESULT WAS 6.6. RESULT RELAYED TO CHRISTIAN GARCIA NP. AWAITING ACKNOWLEDGEMENT.
[2021-04-01 10:33] LABS: HEMOGLOBIN 6.6 g/dL (11.5-14.8)
--- NOTE | 2021-04-01 14:24 | NUR ---
RN NOTES PATIENT IS FOR TRANSFUSION OF 1 UNIT PRBC. CONSENT SECURED. CALLED ANAYA CUI, CONSENT WAS WITNESSED BY 2 RN. AWAITING MIDLINE INSERTION. VERIFIED ORDER TO LAB. PER LAB THEY HAVE THE ORDER FOR TYPE AND SCREEN.
--- NOTE | 2021-04-01 14:34 | NUR ---
RN NOTES PATIENT REFUSED IV INSERTION.
[2021-04-01 15:57] LABS: EOSINOPHILS % (MANUAL) 1 % (0-4); LYMPHOCYTES % (MANUAL) 4 % (16-48); MONOCYTES % (MANUAL) 5 % (0-11.0); NEUTROPHILS % (MANUAL) 90 (42-76)
[2021-04-01 16:00] VITALS: BP 117/91
--- NOTE | 2021-04-01 16:58 | NUR ---
RN NOTES PATIENT REFUSED TO HAVE BLOOD SUGAR CHECKED. AND 1700 DUE EDS.
--- NOTE | 2021-04-01 17:41 | NUR ---
RN NOTES PATIENT IS FOR MIDLINE INSERTION. CHARGE NURSE MIGUEL ANGEL Avina CERAMICS ENGINEER IS AWARE THAT PATIENT NEEDS BLOOD TRANSFUSION. PER CERAMICS ENGINEER SHE'S WORKING ON GETTING THE MIDLINE DONE, OF THIS TIME, NO AVAILABLE IV NURSE TO DO IT. MADE AWARE.
--- NOTE | 2021-04-01 18:29 | NUR ---
MS RN CLOSING NOTES PT IN BED, ASLEEP, NOT IN ANY FORM OF ACUTE DISTRESS NOTED. BREATHING IS EVEN AND UNLABORED ON ROOM AIR AT THIS TIME. NO IV ACCESS AT THIS TIME. STILL WORKING ON THE MIDLINE INSERTION. SAFETY MEASURES IN PLACE: BED IS LOCKED AND IN LOWEST POSITION, SIDE RAILS UP X3, BED ALARM IS ON, CALL LIGHT AND BEDSIDE TABLE ARE WITHIN REACH. ALL NEEDS ATTENDED AND MET. DUE MEDS GIVEN ORDERED. WILL ENDORSE TO ONCOMING SHIFT FOR MONE.
--- NOTE | 2021-04-01 19:42 | NUR ---
MS RN OPENING NOTES: RECEIVED REPORT AT PATIENT'S BEDSIDE. PATIENT AWAKE WITH INTERMITTENT CONFUSION OBSERVED. COMMUNICATIVE AND ABLE TO VERBALIZE NEEDS EFFECTIVELY. BED IN LOW, LOCKED POSITION, SIDE RAILS UP X3. BED ALARM ON. CALL LIGHT, FLUIDS AND FREQUENTLY USED ITEMS WITHIN REACH.
--- NOTE | 2021-04-01 20:27 | NUR ---
MS RN NOTES: PATIENT REFUSING BLOOD DRAW FOR LABS. EDUCATED PATIENT ON SIGNIFICANCE/IMPORTANCE OF DRAW INCLUDING RISKS ASSOCIATED WITH NOT OBTAINING PERTINENT LAB RESULTS. PATIENT ACKNOWLEDGES RISKS AND ADAMANTLY REFUSING.
[2021-04-01 22:00] VITALS: BP 129/95
[2021-04-01] MEDS: SENNOSIDES 8.6 MG TABLET PO SCH (22:00)
[2021-04-02] VITALS (10 sets, daily range): BP systolic 121–154; BP diastolic 66–81
[2021-04-02] MEDS: LIOTHYRONINE SODIUM (25 MCG) 25 MCG TABLET PO SCH (06:05)
[2021-04-02] MEDS: LEVOTHYROXINE SODIUM 100 MCG TABLET PO SCH (06:05)
[2021-04-02] MEDS: PANTOPRAZOLE 40 MG TABLET.DR PO SCH (06:05)
[2021-04-02] MEDS: BLOOD SUGAR DIAGNOSTIC 1 EACH STRIP IN SCH ×4 (06:17→22:52)
[2021-04-02] MEDS: INSULIN REGULAR, HUMAN 100 UNIT/ML 3 ML VIAL SQ PRN ×2 (06:18→22:58)
--- NOTE | 2021-04-02 06:24 | NUR ---
MS RN CLOSING NOTES: APPROACHED PATIENT WITH BLOW MOULDING MACHINE OPERATOR. PATIENT AGREEABLE TO LAB DRAW AND FSBS. PATIENT IS TEARFUL AT TIMES WHEN REMINISCING ON PAST MEMORIES OF BETTER TIMES. VERBALIZING HOW MUCH SHE MISSES HER FAMILY. ENCOURAGED PATIENT TO FOCUS ON THE PRESENT AND THINGS SHE IS GRATEFUL FOR, THINGS SHE LIKES AND SPOKE AT LENGTH ABOUT THE ASPECTS OF LIFE SHE ENJOYS. PATIENT IS CONFUSED AT TIMES BELIEVING SHE IS AT HER BROTHER'S HOUSE. REORIENTED PATIENT SEVERAL TIMES THROUGHOUT THE NIGHT AND THIS AM. PATIENT IS ORIENTED X1-2. RESTING AT THIS TIME AND IN NO ACUTE PSYCHOLOGICAL DISTRESS. VSS.
[2021-04-02 06:53] LABS: BASOPHILS % (AUTO) 0.2 % (0.0-2.0); EOSINOPHILS % (AUTO) 1.9 % (0.0-6.0); LYMPHOCYTES % (AUTO) 13.8 % (20.0-44.0); MEAN CORPUSCULAR HGB CONC 32 g/dl (31.0-36.0); MEAN CORPUSCULAR VOLUME 100 fL (82-100); MONOCYTES # (AUTO) 0.6 K/uL (0.1-1.30); MONOCYTES % (AUTO) 8.1 % (2.0-12.0); NEUTROPHILS # (AUTO) 5.8 K/uL (1.8-8.9); PLATELET COUNT (AUTO) 248 K/uL (150-450); WHITE BLOOD COUNT (AUTO) 7.6 K/uL (4.3-11.0)
--- NOTE | 2021-04-02 07:20 | NUR ---
MS RN OPENING NOTES RECEIVED PATIENT ON BED ASLEEP BUT EASILY WOKEN UP. PATIENT IS ALERT AND ORIENTED X 2 WITH NO SIGNS OF DISTRESS. PATIENT IS ON ROOM AIR, AND TOLERATING WELL, WITH EQUAL AND UNLABORED BREATHING. PATIENT DOES NOT HAVE AN IV ACCESS AT THIS TIME, MD AWARE. PATIENT WITH HISTORY OF PSYCHOSIS AND NON COMPLIANCE. NO COMPLAIN OF PAIN OR DISCOMFORT AT THIS TIME. SAFETY MEASURES ARE IN PLACE: BED IS LOCKED AND IN LOWEST POSITION. SIDE RAILS UP X 2, BED SIDE TABLE AND CALL LIGHT ARE WITHIN REACH. WILL CONTINUE TO MONITOR PATIENT.
[2021-04-02 07:22] LABS: ALBUMIN 2.2 g/dL (3.4-5.0); BILIRUBIN,TOTAL 0.2 mg/dL (0.2-1.0); CALCIUM, SERUM 7.9 mg/dL (8.5-10.1); CREATININE 2.8 mg/dL (0.6-1.3); MAGNESIUM 2.1 mg/dL (1.8-2.4); PHOSPHORUS 4.8 mg/dL (2.5-4.9); POTASSIUM 4.1 mmol/L (3.5-5.1); TOTAL PROTEIN, SERUM 6.1 g/dL (6.4-8.2)
[2021-04-02 07:39] LABS: RED BLOOD CELL COUNT(AUTO) 1.98 MIL/uL (4.0-5.2)
[2021-04-02 07:42] LABS: HEMOGLOBIN 6.4 g/dL (11.5-14.8)
[2021-04-02 07:43] LABS: HEMATOCRIT 20 % (33-45)
--- NOTE | 2021-04-02 07:45 | NUR ---
MS RN NOTE WITH CRITICAL LAB RESULT OF HG AT 6.4 RELAYED BY COMMERCIAL PAINTER GIOVANNI. DR. GONZALES NOTIFIED WITH STANDING ORDER FOR BLOOD TRANSFUSION BUT STILL WITHOUT ACCESS. WITH ONGOING CROSSMATCHING. AWAITING TO ESTABLISH IV ACCESS AND AVAILABILITY OF BLOOD. NO SIGNS AND SYMPTOMS OF ANEMIA AT THIS TIME. WILL CONTINUE TO MONITOR PATIENT.
[2021-04-02] MEDS: GLUCERNA SHAKE 237 ML CAN PO SCH ×2 (08:00→17:00)
[2021-04-02] MEDS: NIFEdipine XL (30MG) 30 MG TAB PO SCH (09:00)
[2021-04-02] MEDS: MULTIVIT W/MINERALS 1 TAB TABLET PO SCH (09:43)
[2021-04-02] MEDS: LINAGLIPTIN 5 MG TABLET PO SCH (09:43)
[2021-04-02] MEDS: ASCORBIC ACID 500 MG TABLET PO SCH (09:43)
[2021-04-02] MEDS: ASPIRIN EC 81 MG TABLET.DR PO SCH (09:43)
[2021-04-02] MEDS: VENLAFAXINE XR 37.5 MG CAP.SR.24H PO SCH (09:44)
[2021-04-02] MEDS: risperiDONE 1 MG TABLET PO SCH ×3 (09:44→17:39)
[2021-04-02] MEDS: CHOLECALCIFEROL 1,000 UNIT TABLET (VIT D3) PO SCH (09:44)
[2021-04-02] MEDS: METOPROLOL TARTRATE 25 MG TABLET PO SCH ×2 (09:53→20:26)
[2021-04-02] MEDS: DOCUSATE SODIUM 100 MG CAPSULE PO SCH (10:03)
--- NOTE | 2021-04-02 10:04 | NUR ---
MS RN NOTE WASTED FIRST COLACE. 1ST MEDICATION FELL OFF THE FLOOR.
[2021-04-02] MEDS: FERROUS SULFATE (325 MG) 325 MG/TAB TABLET PO SCH (17:39)
--- NOTE | 2021-04-02 17:55 | NUR ---
MS RN NOTE ABLE TO ESTABLISH IV ACCES AND BLOOD READY FOR HAT BODY SORTER. VS ARE WNL. BLOOD TRANSFUSION STARTED ORDERED PER FACILITY PROTOCOL. BLOOD TRANSFUSION TOLERATED WITH NO ADVERSE REACTION NOTED AT THIS TIME. WILL CONTINUE TO MONITOR PATIENT.
--- NOTE | 2021-04-02 19:05 | NUR ---
MS RN CLOSING NOTES RECEIVED PATIENT ON BED ASLEEP BUT EASILY WOKEN UP. PATIENT IS ALERT AND ORIENTED X 2 WITH NO SIGNS OF DISTRESS. PATIENT IS ON ROOM AIR, AND TOLERATING WELL, WITH EQUAL AND UNLABORED BREATHING. WITH LANCE ACCESS ON THE RIGHT FOREARM G22, WITH ONGOING BLOOD TRANSFUSION OF 1 PRBC ORDERED. TOLERATED WELL. NO COMPLAIN OF PAIN OR DISCOMFORT AT THIS TIME. SAFETY MEASURES ARE IN PLACE: BED IS LOCKED AND IN LOWEST POSITION. SIDE RAILS UP X 2, BED SIDE TABLE AND CALL LIGHT ARE WITHIN REACH. WILL ENDORSE PATIENT FOR CONTINUITY OF CARE.
--- NOTE | 2021-04-02 19:35 | NUR ---
MS RN OPENING NOTE PATIENT RECEIVED AWAKE IN BED. A/OX2. NO S/S OF DISTRESS, BREATHING SYMMETRICAL. RFA #20 IV PATENT. RECEIVING PRBCs AT 150ML/HR. VS AT 1930 WNL. SAFETY MEASURES IN PLACE: BED AT LOWEST POSITION, RAILS UP X2, CALL WEIR WITHIN REACH. WILL CONTINUE TO MONITOR PATIENT.
--- NOTE | 2021-04-02 21:45 | NUR ---
MS RN NOTE BLOOD TRANSFUSION WAS ENDED AT 2144. VS STABLE THROUGHOUT FROM DAY TO CURRENT STRADDLE CARRIER OPERATOR. PATIENT SI STABLE. TRANSFUSION TUBING DISPOSED OF IN PROPER RED BIN WITH NAME AND INFO COVERED BY PROTOCOL STICKER.
[2021-04-02] MEDS: SENNOSIDES 8.6 MG TABLET PO SCH (22:00)
[2021-04-03] MEDS: INSULIN REGULAR, HUMAN 100 UNIT/ML 3 ML VIAL SQ PRN (06:14)
[2021-04-03] MEDS: BLOOD SUGAR DIAGNOSTIC 1 EACH STRIP IN SCH ×2 (06:38→12:00)
--- NOTE | 2021-04-03 06:51 | NUR ---
MS RN CLOSING NOTE PATIENT IS ASLEEP IN BED. A/OX2. NO S/S OF DISTRESS, BREATHING SYMMETRICAL. RFA #20G IV PATENT. SAFETY MEASURES IN PLACE: BED AT LOWEST POSITION, RAILS UP X2, CALL WEIR WITHIN REACH. WILL ENDORSE TO NEXT SHIFT FOR MONE.
--- NOTE | 2021-04-03 07:18 | NUR ---
MS RN OPENING NOTES RECEIVED PATIENT ON BED ASLEEP BUT EASILY WOKEN UP. PATIENT IS ALERT AND ORIENTED X 2 WITH NO SIGNS OF DISTRESS. PATIENT IS ON ROOM AIR, AND TOLERATING WELL, WITH EQUAL AND UNLABORED BREATHING. PATIENT IV ACCESS ON THE RIGHT FORE ARM G 22, PATIENT AND INTACT. NO COMPLAIN OF PAIN OR DISCOMFORT AT THIS TIME. SAFETY MEASURES ARE IN PLACE: BED IS LOCKED AND IN LOWEST POSITION. SIDE RAILS UP X 2, BED SIDE TABLE AND CALL LIGHT ARE WITHIN REACH. WILL CONTINUE TO MONITOR PATIENT.
[2021-04-03 07:28] LABS: BASOPHILS % (AUTO) 0.3 % (0.0-2.0); EOSINOPHILS % (AUTO) 2.2 % (0.0-6.0); HEMATOCRIT 24 % (33-45); HEMOGLOBIN 7.9 g/dL (11.5-14.8); LYMPHOCYTES % (AUTO) 12.2 % (20.0-44.0); MEAN CORPUSCULAR HGB CONC 33 g/dl (31.0-36.0); MEAN CORPUSCULAR VOLUME 98 fL (82-100); MONOCYTES # (AUTO) 0.7 K/uL (0.1-1.30); MONOCYTES % (AUTO) 8.2 % (2.0-12.0); NEUTROPHILS # (AUTO) 6.5 K/uL (1.8-8.9); NEUTROPHILS % (AUTO) 77.1 % (43.0-81.0); PLATELET COUNT (AUTO) 269 K/uL (150-450); RED BLOOD CELL COUNT(AUTO) 2.42 MIL/uL (4.0-5.2); WHITE BLOOD COUNT (AUTO) 8.4 K/uL (4.3-11.0)
[2021-04-03 07:41] LABS: CALCIUM, SERUM 8.2 mg/dL (8.5-10.1); CREATININE 2.6 mg/dL (0.6-1.3); PHOSPHORUS 4.5 mg/dL (2.5-4.9); POTASSIUM 4.1 mmol/L (3.5-5.1)
[2021-04-03] MEDS: GLUCERNA SHAKE 237 ML CAN PO SCH (08:00)
[2021-04-03] MEDS: LIOTHYRONINE SODIUM (25 MCG) 25 MCG TABLET PO SCH (08:16)
[2021-04-03] MEDS: PANTOPRAZOLE 40 MG TABLET.DR PO SCH (08:16)
[2021-04-03] MEDS: VENLAFAXINE XR 37.5 MG CAP.SR.24H PO SCH (08:17)
[2021-04-03] MEDS: DOCUSATE SODIUM 100 MG CAPSULE PO SCH (08:17)
[2021-04-03] MEDS: ASPIRIN EC 81 MG TABLET.DR PO SCH (08:17)
[2021-04-03] MEDS: LEVOTHYROXINE SODIUM 100 MCG TABLET PO SCH (08:17)
[2021-04-03] MEDS: NIFEdipine XL (30MG) 30 MG TAB PO SCH (08:18)
[2021-04-03] MEDS: METOPROLOL TARTRATE 25 MG TABLET PO SCH (08:18)
[2021-04-03] MEDS: FERROUS SULFATE (325 MG) 325 MG/TAB TABLET PO SCH (08:18)
[2021-04-03] MEDS: MULTIVIT W/MINERALS 1 TAB TABLET PO SCH (08:19)
[2021-04-03] MEDS: LINAGLIPTIN 5 MG TABLET PO SCH (08:19)
[2021-04-03] MEDS: ASCORBIC ACID 500 MG TABLET PO SCH (08:19)
[2021-04-03] MEDS: risperiDONE 1 MG TABLET PO SCH ×2 (08:19→13:01)
[2021-04-03] MEDS: CHOLECALCIFEROL 1,000 UNIT TABLET (VIT D3) PO SCH (08:20)
[2021-04-03 08:29] VITALS: BP 153/86
[2021-04-03] MEDS ORDERED: FERR325T28 PO (08:44)
[2021-04-03] MEDS ORDERED: LIOT25TA7 PO (08:44)
[2021-04-03] MEDS ORDERED: RISP1TAB7 PO (08:44)
[2021-04-03] MEDS ORDERED: LEVO100T PO (08:44)
--- NOTE | 2021-04-03 11:00 | NUR ---
MS RN NOTE PATIENT SEEN BY DR. GARCIA, WITH ORDERS FOR DISCHARGE TO SNF. AWAITING ARRANGEMENTS C/O CASE MANAGEMENT. WILL CONTINUE TO MONITOR PATIENT.
--- NOTE | 2021-04-03 12:30 | NUR ---
MS RN NOTE PATIENT FOR DISCHARGE. AWAITING TRANSPORTATION. HEALTH TEACHING DONE AND VERBALIZED UNDERSTANDING AND APPRECIATION. PATIENT IS FORGETFUL AND WILL NEED REINFORCEMENTS. PATIENT ENDORSED TO [facility]. AWAITING PICK-UP BY AMBULANCE. WILL CONTINUE TO MONITOR PATIENT.
[2021-04-03 16:08] VITALS: BP 151/80
--- NOTE | 2021-04-03 17:27 | NUR ---
MS RN NOTE PATIENT PICKED UP BY TRANSPORTATION ORDERED. IN STABLE CONDITION. PATIENT WAS UPSET THAT TRANSPORTATION TOOK THEM A LONG TIME TO GET HERE THAN INITIALLY SCHEDULED. IV ACCESS REMOVED AND COVERED WITH DRY DRESSING, TOLERATED WELL. PATIENT PICKED UP BY 2 EMT PERSONNEL VIA GURNEY. IN STABLE CONDITION. WILL ENDORSE ACCORDINGLY.
--- NOTE | 2021-04-03 17:50 | NUR ---
CORRECTION: PATIENT LEFT AT 1710.
== END 2021-04-03 17:10 | DRG 463 ==
LOC: ER 20:51 → TRANSITION 03-21 07:34 → TELE1 03-21 11:15 → TELE 03-24 14:42 → MED 03-26 10:38
PROVIDERS: ADMIT Nurse Practitioner Acute Care; ATTEND Hospitalist
PROC: 05H933Z Insertion of Infusion Device into Right Brachial Vein, Percutaneous Approach (ICD-10-PCS; principal; 2021-03-21)
PROC: 30233N1 Transfusion of Nonautologous Red Blood Cells into Peripheral Vein, Percutaneous Approach (ICD-10-PCS; 2021-04-02)
DX: B37.49 Other urogenital candidiasis (principal); N17.0 Acute kidney failure with tubular necrosis; G93.41 Metabolic encephalopathy; I21.A1 Myocardial infarction type 2; D68.59 Other primary thrombophilia; F03.91 Unspecified dementia, unspecified severity, with behavioral disturbance; F32.3 Major depressive disorder, single episode, severe with psychotic features; E44.0 Moderate protein-calorie malnutrition; N18.4 Chronic kidney disease, stage 4 (severe); I31.3 Pericardial effusion (noninflammatory); E86.1 Hypovolemia; E11.22 Type 2 diabetes mellitus with diabetic chronic kidney disease; D64.9 Anemia, unspecified; F29 Unspecified psychosis not due to a substance or known physiological condition; I13.0 Hypertensive heart and chronic kidney disease with heart failure and stage 1 through stage 4 chronic kidney disease, or unspecified chronic kidney disease; I50.32 Chronic diastolic (congestive) heart failure; I25.10 Atherosclerotic heart disease of native coronary artery without angina pectoris; Z20.822 Contact with and (suspected) exposure to COVID-19; Z88.8 Allergy status to other drugs, medicaments and biological substances; E66.01 Morbid (severe) obesity due to excess calories; E03.9 Hypothyroidism, unspecified; E11.65 Type 2 diabetes mellitus with hyperglycemia; F43.21 Adjustment disorder with depressed mood; Z68.35 Body mass index [BMI] 35.0-35.9, adult; Z53.20 Procedure and treatment not carried out because of patient's decision for unspecified reasons; Z79.899 Other long term (current) drug therapy; Z91.14 Patient's other noncompliance with medication regimen; Z91.19 Patient's noncompliance with other medical treatment and regimen; Z74.09 Other reduced mobility; E83.42 Hypomagnesemia; E87.6 Hypokalemia; I67.2 Cerebral atherosclerosis; I70.0 Atherosclerosis of aorta
CPT/HCPCS: 36415; 70450-TC; 71045-TC; 76770-TC; 80048-TC; 80053-TC; 80061-TC; 80076-TC; 81001; 82272-TC; 82533; 82550-TC; 82962-TC; 83540-TC; 83735-TC; 84100-TC; 84439-TC; 84443-TC; 84481; 84484-TC; 85025-TC; 86850-TC; 87081-TC; 87086-TC; 87186-TC; 93307-TC; 97116-TC; 97530-TC; A4216; G0378; G0480; J0692; J0696; J0885; J1200; J1450; J1630; J1644; J1650; J1815; J2060; J3490; J7030; J7050; J7060; J7120; P9016; U0003